=== PATIENT | female | born 1950 | race Caucasian/White ===

== ENCOUNTER 2019-11-20 15:28 | Inpatient (IN) | payer MEDICARE ==
[~2019-11-20] VITALS: Ht 160 cm; Wt 55.8 kg
--- NOTE | 2019-11-20 15:52 | NUR ---
patient was seen by MD. She is awake and alert. She is confused and is not awareof her situation. Observer/sitter at bedside.
--- NOTE | 2019-11-20 16:36 | NUR ---
report given to accepting nurse.
[2019-11-20 17:00] VITALS: BP 115/59
--- NOTE | 2019-11-20 17:00 | NUR ---
Admitted 69 year old female with dx of acute psychosis. In no acute distress. No SOB noted. Admission interventions completed. Safety measures implemented. Will continue to monitor and assess.
[2019-11-20] MEDS ORDERED: GUAIFENESIN/DEXTROMETHORPHAN 5 ML UDC PO PRN (17:15)
[2019-11-20] MEDS ORDERED: MAGNESIUM HYDROXIDE 30 ML LIQUID UDC PO PRN (17:15)
[2019-11-20 19:00] VITALS: BP 123/80
[2019-11-20] MEDS: ACETAMINOPHEN 325 MG TABLET PO PRN (20:41)
[2019-11-20] MEDS: LATANOPROST OPHT DROP 2.5 ML BOTTLE EACHEYE SCH (20:41)
[2019-11-20] MEDS ORDERED: BIMATOPROST 0.01% OPHT DROP 2.5 ML BOTTLE EACHEYE SCH (21:00)
[2019-11-20] MEDS: CEphaleXIN 500 MG CAPSULE PO SCH (21:29)
[2019-11-21] MEDS ORDERED: MAG HYDROX/AL HYDROX/SIMETH 30 ML LIQUID UDC PO PRN (00:45)
[2019-11-21] MEDS: CEphaleXIN 500 MG CAPSULE PO SCH ×3 (06:22→21:03)
[2019-11-21 06:31] LABS: BASOPHILS # (AUTO) 0.1 K/uL (0.0-8.0); BASOPHILS % (AUTO) 1.3 % (0.0-2.0); EOSINOPHILS # (AUTO) 0.2 K/uL (0.0-0.7); EOSINOPHILS % (AUTO) 2.9 % (0.0-7.0); HEMATOCRIT 37.9 % (31.2-41.9); HEMOGLOBIN 12.9 g/dL (10.9-14.3); LYMPHOCYTES # (AUTO) 2.7 K/uL (20.0-40.0); LYMPHOCYTES % (AUTO) 50.9 % (20.5-51.5); MEAN CORPUSCULAR HEMOGLOBIN 31.3 uug (24.7-32.8); MEAN CORPUSCULAR HGB CONC 34 g/dL (32.3-35.6); MEAN CORPUSCULAR VOLUME 92.1 fL (75.5-95.3); MONOCYTES # (AUTO) 0.5 K/uL (2.0-10.0); MONOCYTES % (AUTO) 9.3 % (0.0-11.0); NEUTROPHILS # (AUTO) 1.9 K/uL (1.8-8.9); NEUTROPHILS % (AUTO) 35.6 % (38.5-71.5); PLATELET COUNT (AUTO) 208 K/uL (179-408); RED BLOOD CELL COUNT(AUTO) 4.11 MIL/uL (3.63-4.92); WHITE BLOOD COUNT (AUTO) 5.4 K/uL (3.8-11.8)
[2019-11-21 06:52] LABS: BILIRUBIN,DIRECT 0.1 mg/dL (0.0-0.2); BILIRUBIN,TOTAL 0.3 mg/dL (0.2-1.0); CREATININE 0.7 mg/dL (0.6-1.3); MAGNESIUM 2.2 mg/dL (1.8-2.4); PHOSPHOROUS 3.9 mg/dL (2.5-4.9); POTASSIUM 3.8 mmol/L (3.5-5.1); TOTAL PROTEIN, SERUM 6.5 g/dL (6.4-8.2)
[2019-11-21 06:53] LABS: THYROID STIMULATING HORMONE 1.454 mIU/mL (0.358-3.740)
[2019-11-21 07:52] VITALS: BP 119/66
[2019-11-21] MEDS: AMLODIPINE 5 MG TABLET PO SCH (08:17)
--- NOTE | 2019-11-21 10:00 | NUR ---
Gps/Daily Sales Audit Clerk-Confused, disoriented, needed constant redirections, reorientations, very forgetful awol risk, kept saying she needs to go home to take care of her mother. Frequency in urination noted, denies any burning sensations, adequate fluid intake. Ambulated around the hallway . Gets anxious, and figity .Continue to monitor safety.
[2019-11-21 10:36] VITALS: BP 132/72
--- NOTE | 2019-11-21 11:06 | NUR ---
Received patient from overnight cashier, sitting on the edge of the bed and making frequent trips to the bathroom. Urinary urgency and frequency noted. Patient is very confused and needs constant reorientation. Ambulated patient around unit and medicated patient for anxiety. Monitoring for safety. No acute distress or behavior issues noted at this time. .
[2019-11-21] MEDS: ACETAMINOPHEN 325 MG TABLET PO PRN (11:15)
[2019-11-21] MEDS: LORAZEPAM 1 MG TABLET PO PRN ×2 (11:15→20:54)
--- NOTE | 2019-11-21 12:42 | NUR ---
Gps?pulp house supervisor- Restless, and remains anxious, patient carrying thrash can from the bathroom, discouraged patient from doing so, claimed she's giving the thrash to her sister . Encouraged patient to finished her lunch tray claimed not hungry, adequate fluid intake.
[2019-11-21 16:20] VITALS: BP 118/60
[2019-11-21] MEDS: DIVALPROEX 250 MG TABLET.DR PO SCH ×2 (16:49→20:25)
[2019-11-21] MEDS: risperiDONE 0.25 MG TABLET PO SCH (16:49)
--- NOTE | 2019-11-21 17:45 | NUR ---
Gps/Lvv- Refusing am shower , re offered this pm, agreed, assisted with her pm shower. Noted patient has bilateral hearing aid, removed and was put in the contraband locker, removed black back pack with pouches of make up stuff also placed in the contraband locker. Noted 2 eye glasses, kept 1 pair with patient and 1 kept in the locker. Refused to wear hosp. gown and pajama buttom, wants to keep her reg. clothes . Patient very forgetful, poor safety judgement, constant redirections provided. Patient was able to talked to her 3x, sister Janae x2, and Je,patient does not remember talking to them.
[2019-11-21 19:18] VITALS: BP 133/68
[2019-11-21] MEDS: LATANOPROST OPHT DROP 2.5 ML BOTTLE EACHEYE SCH (20:25)
[2019-11-21] MEDS: HYDROCODONE/APAP 5-325MG TABLET PO PRN (21:32)
[2019-11-22] MEDS: CEphaleXIN 500 MG CAPSULE PO SCH ×3 (06:01→21:14)
--- NOTE | 2019-11-22 07:03 | NUR ---
Received Pt to care ambulating with 1:1 sitter. Pt noted to be very restless and anxious, thinking her mother was going to pick her up and take her to school. Pt is A+Ox1 to her name only, she is delusional, disoriented and confused, requiring constant redirection and reorientation. Compliant with medications only after prompting and encouragement given. C/o 8/10 generalized pain, [place] 5/325 administered with good effect. Ativan administered for anxiety with minimal effect. Restoril subsequently administered with good effect, as Pt is now resting comfortably. VS stable, ADLs provided, safety emphasized. Slept 7 hours.
[2019-11-22 08:00] VITALS: BP 120/65
[2019-11-22] MEDS: DIVALPROEX 250 MG TABLET.DR PO SCH ×3 (08:03→21:15)
[2019-11-22] MEDS: risperiDONE 0.25 MG TABLET PO SCH ×2 (08:03→16:07)
[2019-11-22] MEDS: AMLODIPINE 5 MG TABLET PO SCH (08:03)
[2019-11-22 12:00] VITALS: BP 112/75
--- NOTE | 2019-11-22 13:52 | NUR ---
GPS: RECEIVED PATIENT AWAKE , SITTING HER CHAIR, WITH 1:1 SITTER FOR SAFETY, PATIENT CONFUSED BUT REDIRECTABLE, PATIENT COMPLIANT WITH MEDICATION, DENIES PAIN , SEEN AMBULATING WITH HER SITTER IN THE HALLWAY, PATIENT WAS GIVEN MAGAZINE AND CRAFTS TO REDIRECT HER ATTENTION, WILL CONTINUE MONITOR
[2019-11-22 15:01] VITALS: BP 120/62
[2019-11-22 16:00] VITALS: BP 110/60
[2019-11-22] MEDS: LORAZEPAM 1 MG TABLET PO PRN (19:22)
[2019-11-22 19:25] VITALS: BP 122/52
[2019-11-22] MEDS: HYDROCODONE/APAP 5-325MG TABLET PO PRN (19:25)
[2019-11-22] MEDS: LATANOPROST OPHT DROP 2.5 ML BOTTLE EACHEYE SCH (21:14)
[2019-11-23] MEDS: CEphaleXIN 500 MG CAPSULE PO SCH ×3 (06:18→22:58)
[2019-11-23 07:29] VITALS: BP 119/43
--- NOTE | 2019-11-23 07:32 | NUR ---
GPS: received patient awake on her bed, AOx1, patient responded to staff, patient verbalizes thats shes feeling well and had a good sleep, will continue monitor
[2019-11-23] MEDS: risperiDONE 0.25 MG TABLET PO SCH ×2 (08:25→16:05)
[2019-11-23] MEDS: DIVALPROEX 250 MG TABLET.DR PO SCH ×3 (08:25→20:23)
[2019-11-23] MEDS: AMLODIPINE 5 MG TABLET PO SCH (08:27)
[2019-11-23] MEDS: ACETAMINOPHEN 325 MG TABLET PO PRN (12:34)
--- NOTE | 2019-11-23 12:42 | NUR ---
Social Work Family Contact: metalworker contacted patient's Richie ([phone]) and gathered collateral. Per Richie, he would want patient back home upon discharge. metalworker discussed treatment plan and discharge plan.
--- NOTE | 2019-11-23 12:42 | NUR ---
Social Work Initial Discharge Plan: Patient currently resides at [address] [place] [address]; ([phone]). Patient lives with her Richie ([phone]). Per patient's , he would want patient to return home upon discharge. dimension mill worker will work with the patient and the MD regarding appropriate discharge planning. dimension mill worker will form a safe and proper discharge.
--- NOTE | 2019-11-23 14:34 | NUR ---
Social Work Individual Counseling: roll on worker met with patient for brief individual therapy. Patient demonstrate with delusional thought content. roll on worker increased awareness surrounding positive reinforcement. Patient was unable to have meaningful conversation with this teletypewriter installer. Patient was experiencing hallucination and stated that if this teletypewriter installer can see "Herb". This teletypewriter installer assured if patient is feeling safe. Patient stated that she is safe. Patient is confused and disorganized.
--- NOTE | 2019-11-23 14:46 | NUR ---
Social Work Firearms Report: Elevated Guard completed and submitted a [employer] firearms report for 5250 grave disability certification. A copy of report has been placed in patient chart
[2019-11-23] MEDS: LORAZEPAM 1 MG TABLET PO PRN (15:20)
[2019-11-23 20:00] VITALS: BP 122/77
[2019-11-23] MEDS: TEMAZEPAM 7.5 MG CAPSULE PO PRN (20:23)
[2019-11-23] MEDS: LATANOPROST OPHT DROP 2.5 ML BOTTLE EACHEYE SCH (21:52)
[2019-11-24] MEDS: CEphaleXIN 500 MG CAPSULE PO SCH ×3 (06:36→20:42)
[2019-11-24 07:30] VITALS: BP 146/69
[2019-11-24] MEDS: AMLODIPINE 5 MG TABLET PO SCH (08:10)
[2019-11-24] MEDS: risperiDONE 0.25 MG TABLET PO SCH ×2 (08:10→16:27)
[2019-11-24] MEDS: DIVALPROEX 250 MG TABLET.DR PO SCH ×3 (08:10→20:42)
--- NOTE | 2019-11-24 09:00 | NUR ---
Social Work PC Hearing Notification: bakery worker conveyor line contacted patient's Richie, ([phone]) and notified patients probable cause of hearing today.
--- NOTE | 2019-11-24 10:38 | NUR ---
Social Work Family Contact: tea plantation worker spoke with patient's Richie ([phone]) and educated patient on 8934. , stated that patient is "sedated" and would like to speak to the doctor. This typewriter ribbon winder stated that patient is not "sedated". This typewriter ribbon winder notified Dr. Cruz. This typewriter ribbon winder also spoke with patient's sister Je ([phone]) who stated that patient has re-current UTI, however; this typewriter ribbon winder checked with the nursing and they stated that patient does not have UTI.
[2019-11-24] MEDS: LORAZEPAM 1 MG TABLET PO PRN ×2 (11:02→17:03)
[2019-11-24 16:00] VITALS: BP 131/57
--- NOTE | 2019-11-24 18:58 | NUR ---
patient noted with anxious behaviour, no distress noted, redirected, meds given as ordered, effective, patient denied suicidal thoughts, continue to monitor
[2019-11-24] MEDS: LATANOPROST OPHT DROP 2.5 ML BOTTLE EACHEYE SCH (20:42)
[2019-11-24] MEDS: TEMAZEPAM 7.5 MG CAPSULE PO PRN (21:54)
[2019-11-24 22:00] VITALS: BP 138/69
--- NOTE | 2019-11-24 22:00 | NUR ---
received to care, up in domenico chair for safety, talking to self, appearing distracted by internal stimuli. ambulated and toileted. gait remains unsteady. compliant with medications, but remains restless, up in domenico chair. PRN restoril was given, for insomnia, at 2154. will continue to monitor closely.
--- NOTE | 2019-11-24 23:00 | NUR ---
assisted to bed. appears to be asleep. no distress noted. will continue to monitor closely.
--- NOTE | 2019-11-25 06:00 | NUR ---
slept 7.5 hours, total. is now awake. assisted with am care, and shower. no distress noted.
[2019-11-25] MEDS: CEphaleXIN 500 MG CAPSULE PO SCH ×3 (06:43→21:12)
[2019-11-25 08:00] VITALS: BP 120/60
[2019-11-25] MEDS: risperiDONE 0.5 MG TABLET PO SCH ×2 (08:28→21:13)
[2019-11-25] MEDS: AMLODIPINE 5 MG TABLET PO SCH (08:28)
[2019-11-25] MEDS: DIVALPROEX 250 MG TABLET.DR PO SCH ×3 (08:28→21:00)
[2019-11-25] MEDS: RIVASTIGMINE TARTRATE 1.5 MG CAPSULE PO SCH ×2 (08:28→21:12)
[2019-11-25 16:00] VITALS: BP 117/65
[2019-11-25] MEDS: LORAZEPAM 1 MG TABLET PO PRN (20:13)
[2019-11-25] MEDS: ACETAMINOPHEN 325 MG TABLET PO PRN (20:13)
[2019-11-25] MEDS: LATANOPROST OPHT DROP 2.5 ML BOTTLE EACHEYE SCH (20:14)
[2019-11-25 20:44] VITALS: BP 102/54
[2019-11-25] MEDS ORDERED: VALPROIC ACID 250 MG/5 ML LIQUID UDC PO SCH (21:00)
--- NOTE | 2019-11-25 22:00 | NUR ---
received to care, up in domenico chair for safety, talking to self, appearing distracted by internal stimuli. ambulated and toileted. gait remains unsteady. compliant with medications. PRN ativan was given, for anxiety, at 2012. as of 2199, she remains restless. will continue to monitor closely.
[2019-11-25] MEDS: TEMAZEPAM 7.5 MG CAPSULE PO PRN (22:20)
--- NOTE | 2019-11-25 22:20 | NUR ---
PRN restoril, given for insomnia.
--- NOTE | 2019-11-25 23:30 | NUR ---
appears to be asleep. no distress noted.
--- NOTE | 2019-11-26 00:30 | NUR ---
is now awake, and restless. assisted to [facility] for safety.
--- NOTE | 2019-11-26 03:30 | NUR ---
assisted back to bed. is now asleep.
--- NOTE | 2019-11-26 05:00 | NUR ---
slept 2.45 hours, total. continues to sleep. no distress noted.
[2019-11-26] MEDS: CEphaleXIN 500 MG CAPSULE PO SCH ×2 (06:20→12:51)
[2019-11-26 07:30] VITALS: BP 137/99
[2019-11-26] MEDS: RIVASTIGMINE TARTRATE 1.5 MG CAPSULE PO SCH ×2 (08:26→21:00)
[2019-11-26] MEDS: VALPROIC ACID 250 MG/5 ML LIQUID UDC PO SCH ×3 (08:26→20:59)
[2019-11-26] MEDS: AMLODIPINE 5 MG TABLET PO SCH (08:26)
[2019-11-26] MEDS: risperiDONE 0.5 MG TABLET PO SCH ×2 (08:26→21:00)
--- NOTE | 2019-11-26 11:48 | NUR ---
Received patient this am trying to get out of the bed. Assistance given to the patient to the bathroom , then set up for breakfast. Patient is very forgetful and confused, needing constant reorientation and redirection. Some banging on the table noted and anxious, restless behavior. Medicated per MD order and will continue to monitor patient for safety or and behavior escalation. No distress noted at this time. Patient has been medication compliant so far.
[2019-11-26] MEDS: LORAZEPAM 1 MG TABLET PO PRN ×2 (12:01→21:31)
[2019-11-26 16:11] VITALS: BP 145/74
[2019-11-26] MEDS: HYDROCODONE/APAP 5-325MG TABLET PO PRN (16:54)
[2019-11-26] MEDS ORDERED: TEMAZEPAM 7.5 MG CAPSULE PO PRN (17:30)
[2019-11-26] MEDS ORDERED: ACETAMINOPHEN 325 MG TABLET PO PRN (17:30)
[2019-11-26] MEDS ORDERED: BLOOD SUGAR DIAGNOSTIC 1 EACH STRIP VI ONE (17:30)
[2019-11-26] MEDS ORDERED: LORAZEPAM 1 MG TABLET PO PRN (17:30)
[2019-11-26] MEDS ORDERED: MAG HYDROX/AL HYDROX/SIMETH 30 ML LIQUID UDC PO PRN (17:30)
[2019-11-26] MEDS ORDERED: MAGNESIUM HYDROXIDE 30 ML LIQUID UDC PO PRN (17:30)
--- NOTE | 2019-11-26 19:45 | NUR ---
RECEIVED PT AWAKE, ALERT AND ORIENTEDX1. PT CONFUSED AND FORGETFUL. PT IN NO ACUTE DISTRESS. PLEASANT WHEN APPROACHED. NO SIGNS OF AGITATION. WILL CONTINUE TO MONITOR.
[2019-11-26] MEDS: LATANOPROST OPHT DROP 2.5 ML BOTTLE EACHEYE SCH (20:58)
[2019-11-26 21:19] VITALS: BP 105/97
--- NOTE | 2019-11-27 06:35 | NUR ---
PT SLEPT 7.30 H. PT COOPERATIVE WITH CARE. PRESCRIBED MEDICATION GIVEN AND PT TOLERATED IT WELL. AT 2131H PT GIVEN ATIVAN BECAUSE OF RESTLESSNESS , BANGING THE TABLE, KNOCKING THE DOOR. PT TOLERATED IT WELL. SAFETY AND COMFORT PROVIDED. WILL ENDORSE TO INCOMING NURSE FOR CONTINUITY OF CARE.
[2019-11-27 07:54] VITALS: BP 105/58
[2019-11-27] MEDS: RIVASTIGMINE TARTRATE 1.5 MG CAPSULE PO SCH ×2 (08:34→20:29)
[2019-11-27] MEDS: VALPROIC ACID 250 MG/5 ML LIQUID UDC PO SCH ×3 (08:34→20:29)
[2019-11-27] MEDS: risperiDONE 0.5 MG TABLET PO SCH ×2 (08:35→20:29)
[2019-11-27] MEDS: AMLODIPINE 5 MG TABLET PO SCH (08:35)
--- NOTE | 2019-11-27 11:11 | NUR ---
Patient up early this am trying to get out of bed. Assisted patient tho the bathroom. Patient up to chair for breakfast. Showered patient and allowed patient to ambulate in lo. Gait noted more steady today. Patient remains totally confused and disoriented. Constant redirection and reorientation given. Monitoring patient for episodes of anxiety and hip pain. Continuing to provide a safe environment for patient. No acute distress noted at this time.
--- NOTE | 2019-11-27 13:37 | NUR ---
Social Work Individual Counseling: duralumin metalworker met with patient for brief individual therapy. Patient demonstrate with delusional thought content. duralumin metalworker increased awareness surrounding positive reinforcement. Patient was unable to have meaningful conversation with this story writer. Patient is disorganized and disoriented. She is unaware of where she is at. This story writer actively listened to patient.
[2019-11-27] MEDS: LORAZEPAM 1 MG TABLET PO PRN ×2 (16:46→22:46)
[2019-11-27 16:57] VITALS: BP 121/67
[2019-11-27 20:16] VITALS: BP 118/56
[2019-11-27] MEDS: LATANOPROST OPHT DROP 2.5 ML BOTTLE EACHEYE SCH (20:30)
[2019-11-27] MEDS: TEMAZEPAM 7.5 MG CAPSULE PO PRN (21:27)
--- NOTE | 2019-11-28 06:20 | NUR ---
Patient slept about a total of 4.0 hours last night.
[2019-11-28 07:30] VITALS: BP 127/61
[2019-11-28] MEDS: RIVASTIGMINE TARTRATE 1.5 MG CAPSULE PO SCH ×2 (08:28→20:25)
[2019-11-28] MEDS: risperiDONE 0.5 MG TABLET PO SCH ×2 (08:28→20:25)
[2019-11-28] MEDS: VALPROIC ACID 250 MG/5 ML LIQUID UDC PO SCH ×3 (08:29→20:25)
[2019-11-28] MEDS: AMLODIPINE 5 MG TABLET PO SCH (08:29)
[2019-11-28] MEDS: LORAZEPAM 1 MG TABLET PO PRN ×2 (11:39→20:25)
[2019-11-28 16:47] VITALS: BP 122/58
[2019-11-28] MEDS: LATANOPROST OPHT DROP 2.5 ML BOTTLE EACHEYE SCH (20:24)
[2019-11-28] MEDS: ACETAMINOPHEN 325 MG TABLET PO PRN (20:25)
[2019-11-28 20:31] VITALS: BP 135/59
[2019-11-28] MEDS: CLONAZEPAM 0.5 MG TABLET PO SCH (22:56)
[2019-11-29] MEDS: TEMAZEPAM 7.5 MG CAPSULE PO PRN (00:05)
--- NOTE | 2019-11-29 06:19 | NUR ---
Patient slept about a total of 5.30 hours last night.
[2019-11-29 07:30] VITALS: BP 116/47
[2019-11-29] MEDS: CLONAZEPAM 0.5 MG TABLET PO SCH ×2 (09:00→20:51)
[2019-11-29] MEDS: RIVASTIGMINE TARTRATE 1.5 MG CAPSULE PO SCH ×2 (09:02→20:51)
[2019-11-29] MEDS: risperiDONE 0.5 MG TABLET PO SCH ×2 (09:02→20:51)
[2019-11-29] MEDS: AMLODIPINE 5 MG TABLET PO SCH (09:03)
[2019-11-29] MEDS: VALPROIC ACID 250 MG/5 ML LIQUID UDC PO SCH ×3 (09:04→20:51)
[2019-11-29 15:48] VITALS: BP 106/61
[2019-11-29] MEDS: LATANOPROST OPHT DROP 2.5 ML BOTTLE EACHEYE SCH (21:00)
[2019-11-29 22:27] VITALS: BP 103/58
--- NOTE | 2019-11-29 22:30 | NUR ---
received to care, up in domenico chair for safety, appearing anxious, and distracted by internal stimuli. ambulated and toileted. gait remains unsteady. compliant with medications. assisted with fluids and snacks. as of 2229, she appears asleep. no distress noted. will continue to monitor closely.
--- NOTE | 2019-11-30 06:14 | NUR ---
slept 7 hours, total. is now awake. assisted with am care. up in domenico chair, for safety. no distress noted.
[2019-11-30 07:30] VITALS: BP 118/60
--- NOTE | 2019-11-30 08:00 | NUR ---
Received patient awake and alert , kept clean and dry at all times. safety and comfort provided. will continue to monitor.
[2019-11-30] MEDS: RIVASTIGMINE TARTRATE 1.5 MG CAPSULE PO SCH ×2 (08:26→20:38)
[2019-11-30] MEDS: VALPROIC ACID 250 MG/5 ML LIQUID UDC PO SCH ×3 (08:26→20:03)
[2019-11-30] MEDS: CLONAZEPAM 0.5 MG TABLET PO SCH ×2 (08:26→20:38)
[2019-11-30] MEDS: risperiDONE 0.5 MG TABLET PO SCH ×2 (08:27→20:38)
[2019-11-30] MEDS: AMLODIPINE 5 MG TABLET PO SCH (08:27)
[2019-11-30 15:06] VITALS: BP 115/61
[2019-11-30] MEDS: LATANOPROST OPHT DROP 2.5 ML BOTTLE EACHEYE SCH (20:40)
[2019-11-30 20:44] VITALS: BP 118/64
--- NOTE | 2019-11-30 22:30 | NUR ---
received to care, up in domenico chair, for safety, talking to self, unsteady gait, anxious and suspicious. initially refused her bedtime medications, but eventually took them, with some encouragement. she was assisted to bed at 2144. as of 2229, she remains awake, talking to self. will continue tro monitor closely.
[2019-11-30] MEDS: TEMAZEPAM 7.5 MG CAPSULE PO PRN (23:14)
--- NOTE | 2019-11-30 23:14 | NUR ---
pt irecasimiroins awake. attempting to get out of bed. she was toileted and placed in domenico chair, for safety. PRN restoril, given for insomnia.
[2019-12-01] MEDS: LORAZEPAM 1 MG TABLET PO PRN (01:36)
--- NOTE | 2019-12-01 01:36 | NUR ---
remains awake, and restless. PRN ativan, given for anxiety. remains up in domenico chair, for safety.
--- NOTE | 2019-12-01 06:00 | NUR ---
slept 3.0 hours, total. continues to sleep. no distress noted.
[2019-12-01 07:30] VITALS: BP 91/50
[2019-12-01] MEDS: AMLODIPINE 5 MG TABLET PO SCH (09:00)
[2019-12-01] MEDS: risperiDONE 0.5 MG TABLET PO SCH ×2 (09:12→20:19)
[2019-12-01] MEDS: VALPROIC ACID 250 MG/5 ML LIQUID UDC PO SCH ×3 (09:12→20:19)
[2019-12-01] MEDS: CLONAZEPAM 0.5 MG TABLET PO SCH ×2 (09:14→20:19)
[2019-12-01] MEDS: RIVASTIGMINE TARTRATE 1.5 MG CAPSULE PO SCH ×2 (09:17→20:19)
--- NOTE | 2019-12-01 12:52 | NUR ---
Social Work Family Contact: This rewriter spoke with patient's sister Je ([phone]) and stated that they have hired a caregiver that will provide care for the patient for 8-10 hours a day. This rewriter will arrange home health services for patient upon discharge as well.
--- NOTE | 2019-12-01 15:58 | NUR ---
Patient remove her clothes more often. verbalize different story at one time. Patient seen and examined by MD Young, ordered increase Risperidone 0.5mg to 0.75mg. Patient consumed meals fairly. will continue monitor
[2019-12-01 16:08] VITALS: BP 116/66
[2019-12-01 19:53] VITALS: BP 126/63
[2019-12-01] MEDS: LATANOPROST OPHT DROP 2.5 ML BOTTLE EACHEYE SCH (20:39)
--- NOTE | 2019-12-01 22:00 | NUR ---
received to care, up in domenico chair, for safety. pleasant upon approach. compliant with medications and staff direction. as of 2199, she appears to be asleep. no distress noted. will continue to monitor closely.
--- NOTE | 2019-12-02 06:00 | NUR ---
slept 7.25 hours. continues to sleep. no distress noted.
[2019-12-02] MEDS: ACETAMINOPHEN 325 MG TABLET PO PRN (07:00)
[2019-12-02 07:30] VITALS: BP 106/55
[2019-12-02] MEDS ORDERED: AMLODIPINE 2.5 MG TABLET PO ONE (09:00)
--- NOTE | 2019-12-02 09:41 | NUR ---
Social Work Individual Therapy: alley worker met with patient for brief individual therapy. Patient demonstrate with delusional thought content. Patient was unable to conversate with this speech writer. Patient is confused and disoriented. Patient keeps going off topic and is not focused. This speech writer actively listened and provided emotional support.
[2019-12-02] MEDS: VALPROIC ACID 250 MG/5 ML LIQUID UDC PO SCH ×3 (10:18→21:04)
[2019-12-02] MEDS: CLONAZEPAM 0.5 MG TABLET PO SCH ×2 (10:19→21:03)
[2019-12-02] MEDS: RIVASTIGMINE TARTRATE 1.5 MG CAPSULE PO SCH ×2 (10:19→21:01)
[2019-12-02] MEDS: risperiDONE 0.5 MG TABLET PO SCH ×2 (10:25→21:02)
[2019-12-02] MEDS: LORAZEPAM 1 MG TABLET PO PRN (13:38)
[2019-12-02 16:00] VITALS: BP 104/62
[2019-12-02 20:43] VITALS: BP_SYST 121; BP_DIAS 49; BP_DIAS 59
[2019-12-02] MEDS: LATANOPROST OPHT DROP 2.5 ML BOTTLE EACHEYE SCH (21:06)
[2019-12-03 07:30] VITALS: BP 112/53
--- NOTE | 2019-12-03 09:25 | NUR ---
Social Work Family Contact: powder worker tnt contacted patient's Richie ([phone]) and sister Je ([phone]) and stated that patient will be discharged tomorrow 12/04/2019. Patient's Richie will pick patient up.
--- NOTE | 2019-12-03 09:26 | NUR ---
Social Work Coordination of Care: farmworker grain contacted patients (primary doctor) Dr. Muhammad and scheduled an appointment on December 07 at 8:30AM via telephone meeting. This ad copy writer also contacted and scheduled an appointment on December 08 at 3PM. This ad copy writer contacted [facility] for home health services patient was referred for home health services by [facility] (ph: [phone]; fax: [phone]) for medication management, physical therapy, and nursing follow ups.
[2019-12-03] MEDS: CLONAZEPAM 0.5 MG TABLET PO SCH ×2 (09:58→20:12)
[2019-12-03] MEDS: VALPROIC ACID 250 MG/5 ML LIQUID UDC PO SCH ×3 (09:59→20:12)
[2019-12-03] MEDS: risperiDONE 0.5 MG TABLET PO SCH ×2 (09:59→20:13)
[2019-12-03] MEDS: RIVASTIGMINE TARTRATE 1.5 MG CAPSULE PO SCH ×2 (09:59→20:12)
[2019-12-03 15:13] VITALS: BP 96/55
[2019-12-03] MEDS: LATANOPROST OPHT DROP 2.5 ML BOTTLE EACHEYE SCH (20:12)
[2019-12-03 20:16] VITALS: BP 116/54
[2019-12-03] MEDS: TEMAZEPAM 7.5 MG CAPSULE PO PRN (23:25)
--- NOTE | 2019-12-04 06:27 | NUR ---
GPS: Pt.slept 6 hrs.last night. Remains confused,disoriented. Allows care from staff. No increased agitation noted. Fall precautions observed.
[2019-12-04 07:30] VITALS: BP 118/61
--- NOTE | 2019-12-04 08:29 | NUR ---
Social Work Discharge Note: Patient will be discharged back home [address] [place] [address]; ([phone]). Patients Richie ([phone]) will pickler helper patient at 1PM. Patients Richie ([phone]) is aware and agreeable with the discharge plan. Patient is aware and agreeable with discharge plans. Upon discharge, patient appear to be calm, cooperative and happy to be going home. Patient denies suicidal and homicidal ideation. Patient will follow up with Dr. Muhammad (oral and maxillofacial surgeon) at [address] [place] [address]; ([phone]) on December 07 at 8:30AM via phone meeting and will follow up with Dr. Cullen (psychiatrist) on December 08 at 3 PM at [address] [address]; ([phone]). Per patients sister Je ([phone]), stated that patient will have a caregiver who will help patients debra Queen. Patient was referred for home health services by [facility] (ph: [phone]; fax: [phone]) for medication management, physical therapy, and nursing follow ups. A nurse will be sent to evaluate patient upon her discharge. Patient presents with euthymic mood and congruent affect.
[2019-12-04] MEDS: risperiDONE 0.5 MG TABLET PO SCH (09:16)
[2019-12-04] MEDS: VALPROIC ACID 250 MG/5 ML LIQUID UDC PO SCH ×2 (09:16→12:14)
[2019-12-04] MEDS: CLONAZEPAM 0.5 MG TABLET PO SCH (09:16)
[2019-12-04] MEDS: RIVASTIGMINE TARTRATE 1.5 MG CAPSULE PO SCH (09:16)
--- NOTE | 2019-12-04 13:50 | NUR ---
Pt is being discharged home with homehealth. Pt's Christopher Queen is picking her up. Pt is confused as per baseline. Pt is calm and cooperative. VS are stable. No distress. Discharge instructions were given to the . All belongings returned.
== END 2019-12-04 13:52 | disposition home health service (06) | DRG 885 ==
LOC: ER 15:28 → GPSOV3 16:25 → GPS 11-23 10:08
PROVIDERS: ADMIT Psychiatry & Neurology Psychiatry; ATTEND Nurse Practitioner Acute Care
DX: F29 Unspecified psychosis not due to a substance or known physiological condition (principal); F02.81 Dementia in other diseases classified elsewhere, unspecified severity, with behavioral disturbance; N39.0 Urinary tract infection, site not specified; G30.9 Alzheimer's disease, unspecified; I10 Essential (primary) hypertension; M19.90 Unspecified osteoarthritis, unspecified site; Z73.6 Limitation of activities due to disability; J40 Bronchitis, not specified as acute or chronic; R73.9 Hyperglycemia, unspecified
CPT/HCPCS: 36415; 71045; 80164; 83735; 84100; 84443; 85025; 93005; J3490

== ENCOUNTER 2019-12-09 14:59 | Inpatient (IN) | payer MEDICARE ==
[~2019-12-09] VITALS: Ht 165.1 cm; Wt 54.0 kg
[~2019-12-09 14:59] MED LIST: AMLO5TAB9 PO; BIMA2.5D5 EACHEYE; BRIM5DRO EACHEYE; CYAN-10 INJ
--- NOTE | 2019-12-09 15:17 | NUR ---
PT BROUGHT IN BY RESCUE FR HOME ON [address] HOLD PT IS AOX2 (NAME AND PLACE) PT IS DISORIENTED AND REORIENTED PT KEEPS TRYING TO GET OUT OF THE GURNEY BUT REDIRECTABLE
--- NOTE | 2019-12-09 15:31 | NUR ---
PT MEDICALLY CLEARED
--- NOTE | 2019-12-09 15:33 | NUR ---
HAND OFF AND SBAR GIVEN TO LOUIS TO ADMIT TO [facility] 140A DX: MEDICAL CLEARANCE PT IS GD PT ON [address] Addendum: 12/09/19 at 1544 by PURNIMA HAND OFF AND SBAR GIVEN TO CRISTÓBAL MYERS TO ADMIT TO [facility] 140A DX: MEDICAL CLEARANCE PT IS GD PT ON [address]
--- NOTE | 2019-12-09 15:54 | NUR ---
TRANSPORTED TO FLOOR VIA [facility]
[2019-12-09] MEDS ORDERED: ESCI10TA PO (15:58)
[2019-12-09] MEDS ORDERED: RISP0.5T20 PO (15:58)
[2019-12-09] MEDS ORDERED: RIVA1.5C13 PO (15:58)
[2019-12-09] MEDS ORDERED: DIVA250T4 PO (15:58)
[2019-12-09 16:00] VITALS: BP 115/62
[2019-12-09] MEDS ORDERED: BLOOD SUGAR DIAGNOSTIC 1 EACH STRIP VI ONE (16:30)
[2019-12-09] MEDS ORDERED: MAGNESIUM HYDROXIDE 30 ML LIQUID UDC PO PRN (16:30)
[2019-12-09] MEDS ORDERED: MAG HYDROX/AL HYDROX/SIMETH 30 ML LIQUID UDC PO PRN (16:30)
[2019-12-09] MEDS: LORAZEPAM 1 MG TABLET PO PRN (19:46)
[2019-12-09 20:35] VITALS: BP 162/60
[2019-12-09] MEDS ORDERED: BIMATOPROST 0.01% OPHT DROP 2.5 ML BOTTLE EACHEYE SCH (21:00)
[2019-12-09] MEDS: TEMAZEPAM 7.5 MG CAPSULE PO PRN (21:10)
[2019-12-09] MEDS: LATANOPROST OPHT DROP 2.5 ML BOTTLE EACHEYE SCH (21:15)
--- NOTE | 2019-12-09 22:00 | NUR ---
received to care, up in domenico chair, talking to self. report given by morning shift, who admitted this pt from home, at approximately 1600. she was discharged home last week, from out unit, but she remained unmanageable, at home. PRN ativan was given at 1945, for increasing restlessness. this was ineffective. PRN restoril was given at 2109 for insomnia, but, as of 2199, she remains awake, but appears calmer. she was assisted to bed, but immediately tried to climb out, so she was assited back to [facility], for safety. she continues to talk to self. no distress noted. will continue to monitor closely.
--- NOTE | 2019-12-10 06:00 | NUR ---
slept 3.5 hours, total. remains awake. assisted with AM care, and toileting. remains calm, talking to self. no distress noted.
[2019-12-10 07:30] VITALS: BP 112/50
[2019-12-10 07:50] LABS: BILIRUBIN,TOTAL 0.6 mg/dL (0.2-1.0); CREATININE 0.9 mg/dL (0.6-1.3); POTASSIUM 3.8 mmol/L (3.5-5.1); TOTAL PROTEIN, SERUM 7.6 g/dL (6.4-8.2)
[2019-12-10] MEDS: AMLODIPINE 5 MG TABLET PO SCH (08:43)
[2019-12-10 10:20] LABS: BASOPHILS # (AUTO) 0.1 K/uL (0.0-8.0); BASOPHILS % (AUTO) 1.2 % (0.0-2.0); EOSINOPHILS # (AUTO) 0.2 K/uL (0.0-0.7); EOSINOPHILS % (AUTO) 2.2 % (0.0-7.0); HEMATOCRIT 37.8 % (31.2-41.9); HEMOGLOBIN 13.3 g/dL (10.9-14.3); LYMPHOCYTES # (AUTO) 1.8 K/uL (20.0-40.0); LYMPHOCYTES % (AUTO) 23.4 % (20.5-51.5); MEAN CORPUSCULAR HGB CONC 35 g/dL (32.3-35.6); MONOCYTES # (AUTO) 0.7 K/uL (2.0-10.0); MONOCYTES % (AUTO) 9.3 % (0.0-11.0); NEUTROPHILS % (AUTO) 63.9 % (38.5-71.5); PLATELET COUNT (AUTO) 326 K/uL (179-408); RED BLOOD CELL COUNT(AUTO) 4.16 MIL/uL (3.63-4.92); WHITE BLOOD COUNT (AUTO) 7.8 K/uL (3.8-11.8)
[2019-12-10 10:38] LABS: THYROID STIMULATING HORMONE 2.48 mIU/mL (0.358-3.740)
[2019-12-10 10:51] LABS: BILIRUBIN,TOTAL 0.6 mg/dL (0.2-1.0); CREATININE 0.8 mg/dL (0.6-1.3); POTASSIUM 3.7 mmol/L (3.5-5.1); TOTAL PROTEIN, SERUM 6.9 g/dL (6.4-8.2)
--- NOTE | 2019-12-10 11:00 | NUR ---
Social Work Initial Discharge Note: Patient currently resides at [address] [place] [address]; ([phone]). This fha underwriter contacted patient's Richie ([phone]) but was unable to reach at the moment. Patient currently lives with her maryluhand Richie ([phone]). sand worker will work with the patient and the MD regarding appropriate discharge planning. sand worker will form a safe and proper discharge.
--- NOTE | 2019-12-10 11:36 | NUR ---
Social Work Family Contact: food prep worker contacted patient's sister Je ([phone]) who stated that she is unsure to if they want patient to a SNF or a Board and Care. food prep worker contacted patient's Abhi ([phone]) who stated that he is unable to take care of her at home and is possibly deciding if patient will need a SNF or Board and Care. Per Richie, stated that he will discuss this with the family and make a decision. This comic book writer will follow up.
--- NOTE | 2019-12-10 14:26 | NUR ---
Received patient this am wandering in hallway, lost. Going in and out of other patients rooms. Patient is totally confused, needing constant redirection and reorientation. Demeanor is pleasant and patient has been compliant with medications. Monitoring closely for safety and any escalation in behavior or distress. None noted at this time.
[2019-12-10 16:00] VITALS: BP 108/50
--- NOTE | 2019-12-10 16:21 | NUR ---
Social Work Individual Therapy Note: sill worker met with patient for brief counseling to address patients delusional thought content. Patient is disorganized and disoriented. Patient was using profanity while this medical underwriter was providing brief counseling. Patient stated that "everyone is just trying to get to her" and stated "even her is trying to get to her". This medical underwriter actively listened. Patient is unable to have a meaningful conversation with this medical underwriter.
[2019-12-10 20:26] VITALS: BP 101/53
[2019-12-10] MEDS: LORAZEPAM 1 MG TABLET PO PRN (20:35)
[2019-12-10] MEDS: ACETAMINOPHEN 325 MG TABLET PO PRN (20:35)
[2019-12-10] MEDS: LATANOPROST OPHT DROP 2.5 ML BOTTLE EACHEYE SCH (20:36)
[2019-12-10] MEDS: RIVASTIGMINE TARTRATE 1.5 MG CAPSULE PO SCH (23:02)
[2019-12-10] MEDS: MIRTAZAPINE 15 MG TABLET PO SCH (23:02)
[2019-12-10 23:21] LABS: *BILIRUBIN,URIN NEGATIVE (NEGATIVE); *BLOOD, URINE TRACE (NEGATIVE); *CLARITY,URINE CLEAR (CLEAR); *COLOR,URINE YELLOW (YELLOW); *KETONES,URINE TRACE (NEGATIVE); LEUKOCYTE ESTERASE ,URINE 2+ (NEGATIVE); NITRITE, URINE NEGATIVE (NEGATIVE); UGLUCOSE NEGATIVE (NEGATIVE)
[2019-12-10 23:26] LABS: BACTERIA,URINE FEW /HPF (NONE SEEN); SQUAMOUS EPITHELIAL CELL,UR MODERATE /HPF (NONE SEEN); WBC,URINE 20-50 /HPF (0-3)
--- NOTE | 2019-12-10 23:30 | NUR ---
received to care, wandering about unit, intrusive with peers and staff, requiring frequent redirection. PRN ativan was given for anxiety, at 2034, but it was ineffective, she continues to be intrusive, and gait was slightly unsteady, so she was placed in the domenico chair, for safety. was seen by Dr Cruz, and started on remeron, and exelon. assisted to bed at 2344. as of 14, she remains intermittently awake, in bed. no distress noted. will continue to monitor closely.
[2019-12-11] MEDS: TEMAZEPAM 7.5 MG CAPSULE PO PRN ×2 (00:29→21:38)
--- NOTE | 2019-12-11 00:29 | NUR ---
PRN restoril, given for insomnia.
--- NOTE | 2019-12-11 06:00 | NUR ---
slept 5.5 hours, total. assisted with am care, and shower. no distress noted.
[2019-12-11 07:30] VITALS: BP 120/99
[2019-12-11] MEDS: risperiDONE 0.5 MG TABLET PO SCH ×2 (08:42→20:17)
[2019-12-11] MEDS: RIVASTIGMINE TARTRATE 1.5 MG CAPSULE PO SCH ×2 (08:42→20:17)
[2019-12-11] MEDS: AMLODIPINE 5 MG TABLET PO SCH (08:48)
--- NOTE | 2019-12-11 09:42 | NUR ---
Social Work Firearms Report: Industrial Accountant completed and submitted a [employer] firearms report for 5250 grave disability certification. A copy of report has been placed in patient chart.
--- NOTE | 2019-12-11 10:51 | NUR ---
Social Work Family Contact: venetian blind worker spoke with patient's Richie ([phone]) who stated that he is still unsure to if he wants patient back home or to a SNF. This writer producer sent patient lists of SNFs and per Richei he stated that he will make a decision by Saturday12/14/19. This writer producer will follow-up with patient's .
[2019-12-11] MEDS: CEphaleXIN 500 MG CAPSULE PO SCH ×2 (13:09→16:35)
--- NOTE | 2019-12-11 14:18 | NUR ---
Received patient this am in domenico chair. Assisted patient with breakfast and am medications. Patient remains confused and needs constant reorientation to the environment. Gait steady, patient ambulates in the lo but goes room to room and is often lost. Some visual hallucination noted. Patient started on antibiotics for UTI. No acute distress noted. Continuing to monitor for safety.
[2019-12-11 15:18] VITALS: BP 90/52
--- NOTE | 2019-12-11 15:28 | NUR ---
Social Work Individual Therapy Note: cinder crew worker met with patient for brief counseling to address patients delusional thought content. Patient is disorganized and disoriented. Patient is unable to have proper eye contact and is unable to have meaningful conversation.
[2019-12-11] MEDS: LORAZEPAM 1 MG TABLET PO PRN (17:30)
[2019-12-11 20:10] VITALS: BP 101/52
[2019-12-11] MEDS: MIRTAZAPINE 15 MG TABLET PO SCH (20:17)
[2019-12-11] MEDS: LATANOPROST OPHT DROP 2.5 ML BOTTLE EACHEYE SCH (20:21)
[2019-12-11] MEDS: ACETAMINOPHEN 325 MG TABLET PO PRN (21:37)
--- NOTE | 2019-12-11 22:30 | NUR ---
received to care, wandering about unit, intrusive with peers and staff, requiring frequent redirection. she continued to be intrusive, and gait was slightly unsteady, so she was placed in the domenico chair, for safety. PRN restoril was given at 2137, for insomnia. as of 2229, she remains awake, in domenico chair. remains restless. will continue to monitor closely.
--- NOTE | 2019-12-12 06:00 | NUR ---
slept 5.5 hours, total. continues to sleep. no distress noted.
[2019-12-12 07:30] VITALS: BP 102/52
[2019-12-12] MEDS: AMLODIPINE 5 MG TABLET PO SCH (09:00)
[2019-12-12] MEDS: risperiDONE 0.5 MG TABLET PO SCH ×2 (09:22→20:15)
[2019-12-12] MEDS: RIVASTIGMINE TARTRATE 1.5 MG CAPSULE PO SCH ×2 (09:22→20:15)
[2019-12-12] MEDS: CEphaleXIN 500 MG CAPSULE PO SCH ×2 (09:22→16:18)
[2019-12-12] MEDS: LORAZEPAM 1 MG TABLET PO PRN ×2 (11:37→20:15)
--- NOTE | 2019-12-12 12:00 | NUR ---
Patient noted very restless. Ativan 1mg PO PRN administered and tolerated well.
[2019-12-12 15:47] VITALS: BP 93/42
[2019-12-12] MEDS: ACETAMINOPHEN 325 MG TABLET PO PRN (16:18)
[2019-12-12] MEDS: MIRTAZAPINE 15 MG TABLET PO SCH (20:15)
[2019-12-12] MEDS: LATANOPROST OPHT DROP 2.5 ML BOTTLE EACHEYE SCH (20:19)
[2019-12-12 20:30] VITALS: BP 117/60
[2019-12-12] MEDS: TEMAZEPAM 7.5 MG CAPSULE PO PRN (21:56)
--- NOTE | 2019-12-13 05:56 | NUR ---
Received Pt in the hallway attempting to get out of the domenico chair unsafely. Pt was assisted from the chair and taken to the bathroom. Pt remained restless and anxious, wandering into other Pt's rooms despite redirection provided. Pt placed back into domenico chair for safety. Pt is confused, disoriented, and forgetful. Compliant with medications with prompting and encouragement. Pt has episodes of delusional behavior, believing her is here or thinking she is at home. Ativan 1 mg administered with minimal effect. Restoril 7.5mg administered with good effect, pt slept 5 hours. Shower given this morning. Denied pain, VS stable.
[2019-12-13 07:30] VITALS: BP 120/49
[2019-12-13] MEDS: RIVASTIGMINE TARTRATE 1.5 MG CAPSULE PO SCH ×2 (08:24→20:16)
[2019-12-13] MEDS: AMLODIPINE 5 MG TABLET PO SCH (08:25)
[2019-12-13] MEDS: risperiDONE 0.5 MG TABLET PO SCH ×2 (08:25→20:17)
[2019-12-13] MEDS: CEphaleXIN 500 MG CAPSULE PO SCH ×2 (08:25→17:11)
--- NOTE | 2019-12-13 14:10 | NUR ---
Received patient this AM trying to get out of domenico chair. This patient is totally confused and having visual hallucinations. Reorientation and redirection provided during the whole shift. Patient is ambulatory but wonders around into other patients room. Medication compliant with encouragement and needs assistance with meals. Patient with increased anxiety as the day progresses. Medication given as ordered. Continuing to monitor closely for safety and behavior escalation. Unable to have any meaningful conversation with patient d/t their confusion.
[2019-12-13] MEDS: LORAZEPAM 1 MG TABLET PO PRN (15:36)
[2019-12-13 16:14] VITALS: BP 105/59
[2019-12-13 20:06] VITALS: BP 107/82
[2019-12-13] MEDS: LATANOPROST OPHT DROP 2.5 ML BOTTLE EACHEYE SCH (20:16)
[2019-12-13] MEDS: MIRTAZAPINE 15 MG TABLET PO SCH (20:17)
--- NOTE | 2019-12-13 21:26 | NUR ---
GPS/RECEIVED PT UP IN JESI-CHAIR. VERY CONFUSE AND REPETITIVELY TALKING TO SELF CONTINUOUSLY. PT VERY AGITATED AND TRYING TO GET UP FREQUENTLY FROM ROOM TO ROOM. ROUTINE MEDS GIVEN AND COOPERATIVE. PT IN BED RESTING WITH NO SOB. PT ON ATB THERAPY KEFLEX FOR UTI. OFFER WATER WHILE AWAKE. WILL CONTINUE MONITOR WITH Q 15/MINS HEAD COUNT.
[2019-12-14] MEDS: LORAZEPAM 1 MG TABLET PO PRN ×2 (02:19→19:43)
--- NOTE | 2019-12-14 06:20 | NUR ---
PT HAD MULTIPLE EPISODE OF GETTING OUT OF BED, RESTLESS AND BANGING THE BED. ROOMMATE WAS UNABLE TO SLEEP AND CONSTANTLY GOING TO HELP PT. BY 0300 PT WAS TRANSFER BACK TO JESI-CHAIR., PT WAS NOT ABLE TO CALM, AND INCREASED ON BANGING CHAIR WAKING OTHER PTS. ATIVAN 1MG GIVEN. RECHECKED AFTER AN HOUR NOTED SOME EFFECT. PT SLEPT 4.0 HOURS.
[2019-12-14 07:30] VITALS: BP 104/47
[2019-12-14] MEDS: CEphaleXIN 500 MG CAPSULE PO SCH ×2 (08:25→18:08)
[2019-12-14] MEDS: risperiDONE 0.5 MG TABLET PO SCH ×2 (08:25→20:24)
[2019-12-14] MEDS: RIVASTIGMINE TARTRATE 1.5 MG CAPSULE PO SCH ×2 (08:25→20:23)
[2019-12-14] MEDS: AMLODIPINE 5 MG TABLET PO SCH (08:26)
--- NOTE | 2019-12-14 12:42 | NUR ---
Social Work Family Contact: piggery worker spoke with patient's Richie ([phone]) who stated that he is still looking into nursing homes and will let this resume writer know his decision. This resume writer will follow-up.
[2019-12-14 15:10] VITALS: BP 116/60
--- NOTE | 2019-12-14 15:22 | NUR ---
Social Work Family Contact: flume worker spoke with patient's Richie ([phone]) who stated if this feature writer can send referrals to [facility] ([phone]), [facility] ([phone]), [facility] ([phone]), and [facility] ([phone]).
--- NOTE | 2019-12-14 15:27 | NUR ---
Social Work Coordination of Care: spring floor service worker sent patient's clinicals to [facility] ([phone]), [facility] ([phone]), [facility] ([phone]), and [facility] ([phone]). Per [facility], they stated that they are not taking any patients at the moment.
--- NOTE | 2019-12-14 15:41 | NUR ---
Social Work Coordination of Care: This underwriter contacted [facility] ([phone]) and sent patient's clinicals such as H & P psychiatric notes and medication list.
[2019-12-14] MEDS: LATANOPROST OPHT DROP 2.5 ML BOTTLE EACHEYE SCH (20:23)
[2019-12-14] MEDS: MIRTAZAPINE 15 MG TABLET PO SCH (20:24)
[2019-12-14 20:29] VITALS: BP 145/68
[2019-12-14] MEDS: TEMAZEPAM 7.5 MG CAPSULE PO PRN (21:52)
[2019-12-15 07:30] VITALS: BP 90/53
[2019-12-15] MEDS: CEphaleXIN 500 MG CAPSULE PO SCH ×2 (08:08→17:20)
[2019-12-15] MEDS: RIVASTIGMINE TARTRATE 1.5 MG CAPSULE PO SCH ×2 (08:08→20:40)
[2019-12-15] MEDS: risperiDONE 0.5 MG TABLET PO SCH ×2 (08:08→20:40)
[2019-12-15] MEDS: AMLODIPINE 5 MG TABLET PO SCH (08:10)
--- NOTE | 2019-12-15 09:35 | NUR ---
Received patient this am. Awake, totally confused. B/P medication held this am. Patient ambulatory in lo, wondering from room to room. Patient needs constant redirection and reorientation to environment. Continuing to monitor anxiety, safety and any other needs that might arise. No acute issues at this time.
--- NOTE | 2019-12-15 09:52 | NUR ---
Social Work PC Hearing Notification: christmas tree farm worker contacted patient's Richie, ([phone]) and notified patients probable cause of hearing today.
--- NOTE | 2019-12-15 11:53 | NUR ---
Social Work Family Contact: print finishing worker contacted patient's sister Je ([phone]) who Facetimed this literary writer to speak to patient. This literary writer supervised patient to speak with family at the social work office.
--- NOTE | 2019-12-15 12:48 | NUR ---
Social Work Individual Therapy Note: respite worker met with patient for brief counseling to address patients delusional thought content. Patient is disorganized and disoriented. Patient is unable to have proper eye contact and is unable to have meaningful conversation with this story writer. Patient is not able to conversate with this story writer.
[2019-12-15 16:00] VITALS: BP 134/54
[2019-12-15] MEDS: LORAZEPAM 1 MG TABLET PO PRN (17:20)
[2019-12-15 20:14] VITALS: BP 99/52
[2019-12-15] MEDS: LATANOPROST OPHT DROP 2.5 ML BOTTLE EACHEYE SCH (20:40)
[2019-12-15] MEDS: MIRTAZAPINE 15 MG TABLET PO SCH (20:40)
--- NOTE | 2019-12-15 22:36 | NUR ---
GPS/RECEIVED PT UP IN JESI-CHAIR. ALERT BUT CONFUSE, NOT MUCH BEHAVIOR TODAY. COOPERATIVE WIT ROUTINE MEDICATIONS. AMBULATE TO RESTROOM AND ABLE TO REDIRECT. WILL CONTINUE TO MONITOR.
[2019-12-16] MEDS: TEMAZEPAM 7.5 MG CAPSULE PO PRN ×2 (01:38→21:59)
--- NOTE | 2019-12-16 06:43 | NUR ---
PT WAS UP AND UNABLE TO SLEEP, BY 137 RESTORIL WAS GIVEN. PT SLEPT UP TO 6.30MINS S/P RESTORIL AND CONTINUE SLEEPING. MONITOR AND KEPT SAFE DURING SHIFT. Addendum: 12/16/19 at 0649 by MARNI STEEL RN PT SLEPT 3.30MINS NOT 6.30
[2019-12-16 07:30] VITALS: BP 112/52
[2019-12-16] MEDS: CEphaleXIN 500 MG CAPSULE PO SCH (08:59)
[2019-12-16] MEDS: RIVASTIGMINE TARTRATE 1.5 MG CAPSULE PO SCH ×2 (09:00→20:37)
[2019-12-16] MEDS: AMLODIPINE 5 MG TABLET PO SCH (09:00)
[2019-12-16] MEDS: risperiDONE 0.5 MG TABLET PO SCH ×2 (09:00→20:37)
--- NOTE | 2019-12-16 10:12 | NUR ---
Received patient in bed. Incontinent of urine. Am care given. Assist patient with meal. Patient is totally confused, and needs constant redirection and reorientation. Patient ambulatory in the hallway and wonders around room to room. Gait steady. Continuing to monitor for safety. Medication compliant at this time. Other than confusion and bouts of anxiety, no acute behavioral issues this am. Monitoring UTI.
[2019-12-16] MEDS: GUAIFENESIN/DEXTROMETHORPHAN 5 ML UDC PO PRN (11:25)
--- NOTE | 2019-12-16 12:15 | NUR ---
Social Work Family Contact: plier worker spoke with patient's Richie ([phone]) and discussed placement at [facility] which he is agreeing to. Richie stated that he just wants the best care for his . This information writer assured and empathized with Richie.
[2019-12-16] MEDS: ACETAMINOPHEN 325 MG TABLET PO PRN (15:09)
[2019-12-16 16:05] VITALS: BP 104/48
[2019-12-16] MEDS: LORAZEPAM 1 MG TABLET PO PRN ×2 (17:12→23:45)
[2019-12-16 20:31] VITALS: BP 95/56
[2019-12-16] MEDS: MIRTAZAPINE 15 MG TABLET PO SCH (20:37)
[2019-12-16] MEDS: LATANOPROST OPHT DROP 2.5 ML BOTTLE EACHEYE SCH ×2 (20:37→21:04)
[2019-12-16 21:30] VITALS: BP 112/68
--- NOTE | 2019-12-16 23:00 | NUR ---
received to care, wandering about unit, confused and disoriented, intrusive with peers and staff, requiring frequent redirection. she continued to be intrusive, and gait was slightly unsteady, so she was placed in the domenico chair, for safety. PRN restoril was given at 2158, for insomnia. as of 2299, she remains awake, talking to self, up in domenico chair. remains restless. will continue to monitor closely.
--- NOTE | 2019-12-16 23:30 | NUR ---
pt remains awake, and restless, at nurses station, up in domenico chair, talking to self. PRN ativan was offered, but she refused. will continue to monitor closely.
--- NOTE | 2019-12-16 23:45 | NUR ---
PRN ativan was given. she was assisted to the bathroom, and to bed, but she remains too restless, and got right back out of bed. currently up in domenico chair for safety, talking to self.
--- NOTE | 2019-12-17 06:00 | NUR ---
assisted to bed, around 0300. slept 2.25 hours, total. continues to sleep. no distress noted.
[2019-12-17 07:49] VITALS: BP 94/51
[2019-12-17] MEDS: AMLODIPINE 5 MG TABLET PO SCH (09:00)
[2019-12-17] MEDS: RIVASTIGMINE TARTRATE 1.5 MG CAPSULE PO SCH ×2 (09:53→21:09)
[2019-12-17] MEDS: risperiDONE 0.5 MG TABLET PO SCH (09:53)
[2019-12-17] MEDS: LORAZEPAM 1 MG TABLET PO PRN ×2 (10:53→19:57)
--- NOTE | 2019-12-17 13:55 | NUR ---
RIBBON LAPPER TENDERJones notified regarding patient weak with dry cough. V/s check temp- 98.9 pulse 103, resp-18 Chest x-ray was done yesterday, their was chronic changes in her lungs.
--- NOTE | 2019-12-17 14:38 | NUR ---
Social Work Individual Therapy Note: hall worker met with patient for brief counseling to address patients delusional thought content. Patient is disorganized and disoriented. Patient threw her pillow at this principal technical writer. This principal technical writer stated why did she throw her pillow at this principal technical writer and patient responded because "she wants to sleep on the ground". Patient is unable to have a meaningful conversation with this principal technical writer and is unable to have proper eye contact.
[2019-12-17 15:02] LABS: BASOPHILS # (AUTO) 0.1 K/uL (0.0-8.0); EOSINOPHILS # (AUTO) 0.2 K/uL (0.0-0.7); EOSINOPHILS % (AUTO) 2.2 % (0.0-7.0); HEMATOCRIT 35.4 % (31.2-41.9); HEMOGLOBIN 11.8 g/dL (10.9-14.3); LYMPHOCYTES # (AUTO) 1.9 K/uL (20.0-40.0); LYMPHOCYTES % (AUTO) 22.1 % (20.5-51.5); MEAN CORPUSCULAR HEMOGLOBIN 30.8 uug (24.7-32.8); MEAN CORPUSCULAR HGB CONC 34 g/dL (32.3-35.6); MONOCYTES # (AUTO) 0.9 K/uL (2.0-10.0); MONOCYTES % (AUTO) 10.3 % (0.0-11.0); NEUTROPHILS # (AUTO) 5.6 K/uL (1.8-8.9); NEUTROPHILS % (AUTO) 64.4 % (38.5-71.5); PLATELET COUNT (AUTO) 183 K/uL (179-408); RED BLOOD CELL COUNT(AUTO) 3.84 MIL/uL (3.63-4.92); WHITE BLOOD COUNT (AUTO) 8.8 K/uL (3.8-11.8)
[2019-12-17 15:07] LABS: CREATININE 0.7 mg/dL (0.6-1.3); POTASSIUM 3.7 mmol/L (3.5-5.1)
[2019-12-17 16:00] VITALS: BP 98/74
[2019-12-17 20:00] VITALS: BP 146/62
[2019-12-17] MEDS: LATANOPROST OPHT DROP 2.5 ML BOTTLE EACHEYE SCH (20:29)
[2019-12-17] MEDS: BENZTROPINE MESYLATE 0.5 MG TABLET PO SCH (21:09)
[2019-12-17] MEDS: risperiDONE 1 MG TABLET PO SCH (21:10)
[2019-12-17] MEDS: MIRTAZAPINE 15 MG TABLET PO SCH (21:10)
[2019-12-17] MEDS: TEMAZEPAM 7.5 MG CAPSULE PO PRN (22:47)
--- NOTE | 2019-12-17 23:59 | NUR ---
received to care, wandering about unit, confused and disoriented, intrusive with peers and staff, requiring frequent redirection. she continued to be intrusive, and gait was unsteady, so she was placed in the domenico chair, for safety. PRN ativan was given at 1956, for anxiety, and restlessness. this was ineffective. she was also given her routine medications, which were also ineffective. PRN restoril was given for insomnia, at 2246. as of 2358, she remains awake, talking to self, up in domenico chair. remains restless. will continue to monitor closely.
--- NOTE | 2019-12-18 06:00 | NUR ---
slept 6.25 hours, total. assisted to bed, around 0200. continues to sleep. no distress noted.
[2019-12-18 07:30] VITALS: BP 92/59
[2019-12-18] MEDS: RIVASTIGMINE TARTRATE 1.5 MG CAPSULE PO SCH ×2 (08:48→21:01)
[2019-12-18] MEDS: AMLODIPINE 5 MG TABLET PO SCH (08:50)
[2019-12-18] MEDS: risperiDONE 0.5 MG TABLET PO SCH (08:51)
[2019-12-18] MEDS: LORAZEPAM 1 MG TABLET PO PRN ×2 (09:48→19:51)
[2019-12-18 11:30] LABS: BILIRUBIN,TOTAL 0.3 mg/dL (0.2-1.0); CREATININE 0.7 mg/dL (0.6-1.3); POTASSIUM 3.3 mmol/L (3.5-5.1); TOTAL PROTEIN, SERUM 7.3 g/dL (6.4-8.2)
[2019-12-18 11:37] LABS: BASOPHILS # (AUTO) 0.1 K/uL (0.0-8.0); BASOPHILS % (AUTO) 1.1 % (0.0-2.0); EOSINOPHILS # (AUTO) 0.2 K/uL (0.0-0.7); EOSINOPHILS % (AUTO) 2.5 % (0.0-7.0); HEMOGLOBIN 12.8 g/dL (10.9-14.3); LYMPHOCYTES # (AUTO) 1.1 K/uL (20.0-40.0); LYMPHOCYTES % (AUTO) 14.6 % (20.5-51.5); MEAN CORPUSCULAR HEMOGLOBIN 30.9 uug (24.7-32.8); MEAN CORPUSCULAR HGB CONC 34 g/dL (32.3-35.6); MEAN CORPUSCULAR VOLUME 91.4 fL (75.5-95.3); MONOCYTES # (AUTO) 0.6 K/uL (2.0-10.0); MONOCYTES % (AUTO) 8.3 % (0.0-11.0); NEUTROPHILS # (AUTO) 5.7 K/uL (1.8-8.9); NEUTROPHILS % (AUTO) 73.5 % (38.5-71.5); PLATELET COUNT (AUTO) 207 K/uL (179-408); RED BLOOD CELL COUNT(AUTO) 4.16 MIL/uL (3.63-4.92); WHITE BLOOD COUNT (AUTO) 7.8 K/uL (3.8-11.8)
--- NOTE | 2019-12-18 14:46 | NUR ---
Social Work Coordination of Care: Patient has been accepted to [facility] and patient's Richie ([phone]) wants patient to be discharged to [facility] upon discharge.
[2019-12-18 15:48] VITALS: BP 100/58
[2019-12-18] MEDS ORDERED: POTASSIUM CHLORIDE 20 MEQ TAB.PRT.SR PO ONE (16:30)
--- NOTE | 2019-12-18 16:49 | NUR ---
Patient potassium 3.3 relay to COMMISSIONED DEFENCE FORCE OFFICER Froylan, ordered Potassium 40meq PO. no complaint of pain/discomfort noted. will continue monitor
[2019-12-18] MEDS: LATANOPROST OPHT DROP 2.5 ML BOTTLE EACHEYE SCH (20:04)
[2019-12-18] MEDS: BENZTROPINE MESYLATE 0.5 MG TABLET PO SCH (21:00)
[2019-12-18] MEDS: risperiDONE 1 MG TABLET PO SCH (21:01)
[2019-12-18] MEDS: MIRTAZAPINE 15 MG TABLET PO SCH (21:01)
[2019-12-18 21:08] VITALS: BP 111/58
[2019-12-18] MEDS: TEMAZEPAM 7.5 MG CAPSULE PO PRN (22:03)
--- NOTE | 2019-12-18 23:25 | NUR ---
received to care, wandering about unit, confused and disoriented, intrusive with peers and staff, requiring frequent redirection. she continued to be intrusive, and gait was unsteady, so she was placed in the domenico chair, for safety. PRN ativan was given at 1950, for anxiety, and restlessness. this was ineffective. she was also given her routine medications, which were also ineffective. she was assisted to bed, but got right back up, so she was assisted back to domenico chair, for safety. PRN restoril was given for insomnia, at 2202. as of 2324, she remains awake, talking to self, up in domenico chair, appearing distracted by internal stimuli. remains restless. will continue to monitor closely.
[2019-12-19] MEDS: GUAIFENESIN/DEXTROMETHORPHAN 5 ML UDC PO PRN ×2 (01:27→11:14)
--- NOTE | 2019-12-19 06:00 | NUR ---
slept 5.75 hours, total. continues to sleep. no distress noted.
[2019-12-19 07:30] VITALS: BP 104/42
[2019-12-19 07:36] LABS: BASOPHILS # (AUTO) 0.1 K/uL (0.0-8.0); BASOPHILS % (AUTO) 1.1 % (0.0-2.0); EOSINOPHILS # (AUTO) 0.3 K/uL (0.0-0.7); EOSINOPHILS % (AUTO) 4.5 % (0.0-7.0); HEMATOCRIT 36.7 % (31.2-41.9); HEMOGLOBIN 12.4 g/dL (10.9-14.3); LYMPHOCYTES # (AUTO) 2.2 K/uL (20.0-40.0); LYMPHOCYTES % (AUTO) 29.5 % (20.5-51.5); MEAN CORPUSCULAR HEMOGLOBIN 30.9 uug (24.7-32.8); MEAN CORPUSCULAR HGB CONC 34 g/dL (32.3-35.6); MEAN CORPUSCULAR VOLUME 91.6 fL (75.5-95.3); MONOCYTES # (AUTO) 0.7 K/uL (2.0-10.0); NEUTROPHILS % (AUTO) 54.9 % (38.5-71.5); PLATELET COUNT (AUTO) 190 K/uL (179-408); RED BLOOD CELL COUNT(AUTO) 4.01 MIL/uL (3.63-4.92); WHITE BLOOD COUNT (AUTO) 7.3 K/uL (3.8-11.8)
[2019-12-19 08:19] LABS: BILIRUBIN,TOTAL 0.3 mg/dL (0.2-1.0); CREATININE 0.7 mg/dL (0.6-1.3); TOTAL PROTEIN, SERUM 6.8 g/dL (6.4-8.2)
[2019-12-19] MEDS: AMLODIPINE 5 MG TABLET PO SCH (09:00)
[2019-12-19] MEDS: risperiDONE 0.5 MG TABLET PO SCH (11:09)
[2019-12-19] MEDS: RIVASTIGMINE TARTRATE 1.5 MG CAPSULE PO SCH ×2 (11:10→20:58)
[2019-12-19 15:00] LABS: *BILIRUBIN,URIN NEGATIVE (NEGATIVE); *BLOOD, URINE NEGATIVE (NEGATIVE); *CLARITY,URINE CLEAR (CLEAR); *COLOR,URINE YELLOW (YELLOW); *KETONES,URINE NEGATIVE (NEGATIVE); *UROBILINOGEN,URINE 0.2 E.U./dl (NORMAL); LEUKOCYTE ESTERASE ,URINE NEGATIVE (NEGATIVE); NITRITE, URINE NEGATIVE (NEGATIVE); PH,URINE 8.5 (5.0-8.0); UGLUCOSE NEGATIVE (NEGATIVE)
[2019-12-19] MEDS: ACETAMINOPHEN 325 MG TABLET PO PRN (15:07)
[2019-12-19 16:00] VITALS: BP 100/61
[2019-12-19] MEDS: LORAZEPAM 1 MG TABLET PO PRN ×2 (18:00→20:59)
[2019-12-19] MEDS: BENZTROPINE MESYLATE 0.5 MG TABLET PO SCH (20:58)
[2019-12-19] MEDS: MIRTAZAPINE 15 MG TABLET PO SCH (20:58)
[2019-12-19] MEDS: risperiDONE 1 MG TABLET PO SCH (20:58)
[2019-12-19 21:00] VITALS: BP 128/77
[2019-12-19] MEDS: LATANOPROST OPHT DROP 2.5 ML BOTTLE EACHEYE SCH (21:24)
[2019-12-20 07:30] VITALS: BP 118/88
[2019-12-20] MEDS: risperiDONE 0.5 MG TABLET PO SCH (08:43)
[2019-12-20] MEDS: RIVASTIGMINE TARTRATE 1.5 MG CAPSULE PO SCH ×2 (08:43→20:34)
[2019-12-20] MEDS: AMLODIPINE 5 MG TABLET PO SCH (09:00)
--- NOTE | 2019-12-20 09:57 | NUR ---
GPS: received asleep in [facility], patient AOx1-2, patient confused, disorganized, nonsensical conversation, needed to assist with ADL, compliant with medication , needed redirection
--- NOTE | 2019-12-20 18:06 | NUR ---
patient still confused, took a nap in the afternoon, patient had BM2x today, fallrisk and unsteady patient assisted with ADLs, compliant with medications, patients called however patient was asleep, will continue monitor
[2019-12-20] MEDS: MIRTAZAPINE 15 MG TABLET PO SCH (20:34)
[2019-12-20] MEDS: risperiDONE 1 MG TABLET PO SCH (20:34)
[2019-12-20] MEDS: BENZTROPINE MESYLATE 0.5 MG TABLET PO SCH (20:34)
[2019-12-20] MEDS: LATANOPROST OPHT DROP 2.5 ML BOTTLE EACHEYE SCH (20:34)
[2019-12-20 20:44] VITALS: BP 101/59
--- NOTE | 2019-12-20 21:00 | NUR ---
Received patient in the hallway sitting in a domenico chair. she is noted awake a/o x1. she is calm and pleasant upon approached. patient is unable to to have a meaningful conversation. affect is blunted, mood is labile. v/s are stable at this time. safety and fall precaution in place. will continue to monitor.
[2019-12-20] MEDS: TEMAZEPAM 7.5 MG CAPSULE PO PRN (22:03)
--- NOTE | 2019-12-20 22:05 | NUR ---
PATIENT NOTED RESTLESS, AND HYPERVERBAL, SHE WAS TAKEN TO THE BATHROOM AND SHE WAS AMBULATED THROUGHOUT THE HALLWAY. SHE CONTINUE UNABLE TO FALL ASLEEP. TEMAZEPAM 7.5 MG PO PRN WAS GIVEN. WILL CONTINUE TO MONITOR.
[2019-12-20] MEDS: LORAZEPAM 1 MG TABLET PO PRN (23:54)
--- NOTE | 2019-12-21 00:05 | NUR ---
PATIENT CONTINUE HYPERVERBAL, UNABLE TO FALL ASLEEP. SHE IS ALSO NOTED ANXIOUS, AND UNABLE TO BE REDIRECTED. SHE WAS GIVEN ATIVAN 1MG PO PRN. WILL CONTINUE TO MONITOR.
--- NOTE | 2019-12-21 06:33 | NUR ---
PATIENT SLEPT FOR APPROX 2.45 HRS THROUGH THE NIGHT. PT WAS GIVEN TEMAZEPAM 7.5MG PO PRN AND ATIVAN 1MG DURING THE SHIFT. NO AGGRESSIVE/COMBATIVE BX NOTED. PATIENT IS CONTINENT, ABLE TO AMBULATE WITH ASSISTANCE OF ONE PERSON. WILL CONTINUE TO MONITOR.
[2019-12-21 07:30] VITALS: BP 137/51
--- NOTE | 2019-12-21 08:51 | NUR ---
Social Work Initial Discharge Plan: Patient will be discharged [place] [address]; ([phone]) via ambulance transportation. Please arrange Ambulance transportation for patient to be picked up at 1:00OPM. Hospital Pharmacy Director spoke with Román, Glue Size Machine Operator at [facility]; ([phone]), who stated patient will be accepted at facility today. Patient is alert and oriented x1, and is not able to plan for self-care at this time, but is willing to accept care provided for her at the facility. Patient denies any suicidal or homicidal ideations. Patient is aware and agreeable with discharge plans. Patients Richie, ([phone]) is aware and agreeable with discharge plans. Patient will continue to follow-up with her (Psychiatrist) and ([place]) [place] [address]; ([phone]). Patient will follow-up at the center. Patient presents with euthymic mood and congruent affect. Addendum: 12/21/19 at 1202 by MILTON SHELBY Patient will be discharged [place] [address]; ([phone]) via ambulance transportation. Please arrange Ambulance transportation for patient to be picked up at 1:00OPM. Hospital Pharmacy Director spoke with Román, Glue Size Machine Operator at [facility]; ([phone]), who stated patient will be accepted at facility today. Patient is alert and oriented x1, and is not able to plan for self-care at this time, but is willing to accept care provided for her at the facility. Patient denies any suicidal or homicidal ideations. Patient is aware and agreeable with discharge plans. Patients Richie, ([phone]) is aware and agreeable with discharge plans. Patient will continue to follow-up with her (Psychiatrist) and (Bootmaker) at [address] [address]; ([phone]). Patient will follow-up at the center. Patient presents with euthymic mood and congruent affect.
[2019-12-21] MEDS: RIVASTIGMINE TARTRATE 1.5 MG CAPSULE PO SCH (09:06)
[2019-12-21 09:07] VITALS: BP 124/65
[2019-12-21] MEDS: risperiDONE 0.5 MG TABLET PO SCH (09:07)
[2019-12-21] MEDS: AMLODIPINE 5 MG TABLET PO SCH (09:07)
--- NOTE | 2019-12-21 09:52 | NUR ---
GPS: received patient asleep on her bed, patient woke up and went to toilet, patient VS stable, denies SI and HI, confuse, redirectable, compliant with medication, patient has DC order today to [facility], family aware, will continue monitor
--- NOTE | 2019-12-21 13:32 | NUR ---
patient was DC to [facility], home medication instruction given to the patient , gave report to the facility nurse Lalita, patient was pepper picker by ambulance unit #[id number], , made aware of the DC,
== END 2019-12-21 13:30 | DRG 885 ==
LOC: ER 14:59 → GPS 15:57
PROVIDERS: ADMIT Psychiatry & Neurology Psychiatry; ATTEND Registered Nurse
DX: F25.9 Schizoaffective disorder, unspecified (principal); N39.0 Urinary tract infection, site not specified; E44.1 Mild protein-calorie malnutrition; R45.851 Suicidal ideations; Z68.1 Body mass index [BMI] 19.9 or less, adult; G30.9 Alzheimer's disease, unspecified; F02.80 Dementia in other diseases classified elsewhere, unspecified severity, without behavioral disturbance, psychotic disturbance, mood disturbance, and anxiety; B96.20 Unspecified Escherichia coli [E. coli] as the cause of diseases classified elsewhere; F32.9 Major depressive disorder, single episode, unspecified; M19.90 Unspecified osteoarthritis, unspecified site; F29 Unspecified psychosis not due to a substance or known physiological condition; E88.09 Other disorders of plasma-protein metabolism, not elsewhere classified
CPT/HCPCS: 36415; 71045; 84443; 85025; 87077; 87086; A4663

== ENCOUNTER 2020-07-15 13:40 | Inpatient (IN) | payer MEDICARE ==
[~2020-07-15] VITALS: Ht 162.6 cm; Wt 51.3 kg
[~2020-07-15 13:40] MED LIST changes: +AMLO-212 PO; -AMLO5TAB9 PO
[2020-07-15] MEDS ORDERED: IOHEXOL 300MG/ML 100 ML INFUS..BTL ONE ×2 (14:01→14:04)
[2020-07-15] MEDS ORDERED: IV NORMAL SALINE 250 ML IV ONE (14:01)
[2020-07-15] MEDS ORDERED: SWABABLE VALVE TRANSFER SET EA MC ONE (14:01)
[2020-07-15 14:32] LABS: BASOPHILS # (AUTO) 0.1 K/uL (0.0-8.0); EOSINOPHILS # (AUTO) 0.1 K/uL (0.0-0.7); EOSINOPHILS % (AUTO) 1.6 % (0.0-7.0); HEMOGLOBIN 12.5 g/dL (10.9-14.3); LYMPHOCYTES # (AUTO) 2.3 K/uL (20.0-40.0); LYMPHOCYTES % (AUTO) 42.1 % (20.5-51.5); MEAN CORPUSCULAR HEMOGLOBIN 31.9 uug (24.7-32.8); MEAN CORPUSCULAR HGB CONC 34 g/dL (32.3-35.6); MEAN CORPUSCULAR VOLUME 94.2 fL (75.5-95.3); MONOCYTES # (AUTO) 0.5 K/uL (2.0-10.0); MONOCYTES % (AUTO) 9.1 % (0.0-11.0); NEUTROPHILS # (AUTO) 2.5 K/uL (1.8-8.9); NEUTROPHILS % (AUTO) 46.2 % (38.5-71.5); PLATELET COUNT (AUTO) 188 K/uL (179-408); RED BLOOD CELL COUNT(AUTO) 3.93 MIL/uL (3.63-4.92); WHITE BLOOD COUNT (AUTO) 5.4 K/uL (3.8-11.8)
[2020-07-15] MEDS ORDERED: DIVA250T4 PO (14:45)
[2020-07-15] MEDS ORDERED: RIVA1PAT TD (14:45)
[2020-07-15 14:52] LABS: CARBON DIOXIDE 28 mmol/L (21-32); CHLORIDE 103 mmol/L (98-107); CREATININE 0.5 mg/dL (0.6-1.3); GLUCOSE 101 mg/dL (74-106); POTASSIUM 3.7 mmol/L (3.5-5.1); UREA NITROGEN, BLOOD 6 mg/dL (7-18)
[2020-07-15 14:55] LABS: ETHANOL < 3 MG/DL (0-0)
[2020-07-15 14:58] LABS: ALANINE AMINOTRANSFERASE 19 U/L (14-59); ALKALINE PHOSPHATASE 41 U/L (50-136); ASPARTATE AMINOTRANSFERASE 17 U/L (15-37); BILIRUBIN,DIRECT 0.1 mg/dL (0.0-0.2); BILIRUBIN,TOTAL 0.3 mg/dL (0.2-1.0); TOTAL PROTEIN, SERUM 6.4 g/dL (6.4-8.2)
[2020-07-15 15:02] LABS: ACETAMINOPHEN < 2.0 ug/mL (10-30)
[2020-07-15 15:49] LABS: MAGNESIUM 2.1 mg/dL (1.8-2.4); PHOSPHOROUS 4.1 mg/dL (2.5-4.9)
[2020-07-15 16:06] LABS: *BILIRUBIN,URIN NEGATIVE (NEGATIVE); *BLOOD, URINE NEGATIVE (NEGATIVE); *CLARITY,URINE CLEAR (CLEAR); *COLOR,URINE YELLOW (YELLOW); *KETONES,URINE NEGATIVE (NEGATIVE); *UROBILINOGEN,URINE 0.2 E.U./dl (NORMAL); LEUKOCYTE ESTERASE ,URINE NEGATIVE (NEGATIVE); NITRITE, URINE NEGATIVE (NEGATIVE); UGLUCOSE NEGATIVE (NEGATIVE)
[2020-07-15 16:14] LABS: THYROID STIMULATING HORMONE 1.506 mIU/mL (0.358-3.740)
[2020-07-15 16:19] LABS: *AMPHETAMINE, URINE NEGATIVE (NEGATIVE); *CANNABINOID, URINE NEGATIVE (NEGATIVE); *COCCAINE, URINE NEGATIVE (NEGATIVE); *OPIATE, URINE NEGATIVE (NEGATIVE); *PHENCYCLIDINE SCREEN,URINE NEGATIVE (NEGATIVE)
--- NOTE | 2020-07-15 17:18 | NUR ---
SBAR REPORT GIVEN TO MAGDALENE ARZOLA VIA TELEPHONE.
[2020-07-15 17:45] VITALS: BP 129/53
--- NOTE | 2020-07-15 17:45 | NUR ---
Pt trans to MHU, NAD noted.
[2020-07-15] MEDS ORDERED: MAG HYDROX/AL HYDROX/SIMETH 30 ML LIQUID UDC PO PRN (18:00)
[2020-07-15] MEDS ORDERED: MAGNESIUM HYDROXIDE 30 ML LIQUID UDC PO PRN (18:00)
[2020-07-15] MEDS ORDERED: BLOOD SUGAR DIAGNOSTIC 1 EACH STRIP VI ONE (18:00)
--- NOTE | 2020-07-15 18:40 | NUR ---
ADMISSION NOTE: Patient admitted to MHU from the emergency department on a 5150 hold for GD. Patient was provided with education about the reason for admission, oriented to the unit, and educated about unit rules and policies. Patient provided with advisement and patient's rights handbook. Skin assessment done by RN. patient's belongings and valuables inventoried with patient, and valuables placed in safe. Per 5150 hold, patient was brought to the ED by her for "sleep deprivation" and patient attempting to "leave her home middle of the night at 3am". Upon face to face assessment, patient is alert and orientated to name only. She does not know the date or reason for admission. Patient believes that she lives at home with her mother and that her mother is her primary caregiver. Patient is unable to follow linear and logical conversation. She has disorganized, tangential thoughts. Patient is superficially bright and affect is incongruent. Patient provided with reality orientation and redirection, but she is unable to participate in education at this time. Patient denies history of mental illness or inpatient mental treatment, despite previous history of admission to this unit earlier this year. Patient denies suicidal and homicidal ideation. She denies auditory, visual, tactile, and olfactory hallucinations.
[2020-07-15 20:00] VITALS: BP 114/66
[2020-07-15] MEDS ORDERED: BIMATOPROST 0.01% OPHT DROP 2.5 ML BOTTLE EACHEYE SCH (21:00)
[2020-07-15] MEDS: LORAZEPAM 1 MG TABLET PO PRN (21:02)
[2020-07-15] MEDS: BRIMONIDINE 0.2% OPHT DROP 10 ML BOTTLE EACHEYE SCH (21:36)
--- NOTE | 2020-07-15 21:40 | NUR ---
Rn- Patient Alphagan 0.2% and Lumigan 0.01% medication unavailable. (Not administered).
--- NOTE | 2020-07-15 23:49 | NUR ---
GPS/Rn - Patient was received sitting up in chair and noted pacing to dinning room on and off. Patient was noted very confuse and unable to make sense of reality. Delusional and asking for her Mother frequently, standing by the unit exit door and sometimes pushing on it to AWOL. Patient restless and pacing, wondering into others rooms. Easily re-directable but will immediately forget where she is and walk into another room.Patient is incongruous speaking about her sisters, mother and says things like they are waiting for me. Reality oriented and frequent reminder of her placement. PRN was given Ativan but not effective. Patient unable to stay calm or sit, very confuse. Sleeping aid given and now noted being effective, sitting up in domenico chair at this time. Q/15mins head count initiated and will monitor for AWOL and safety precaution.
[2020-07-16] MEDS: TEMAZEPAM 7.5 MG CAPSULE PO PRN (00:06)
[2020-07-16 07:30] VITALS: BP 108/72
[2020-07-16] MEDS: AMLODIPINE 5 MG TABLET PO SCH (08:49)
--- NOTE | 2020-07-16 12:00 | NUR ---
Gps/Harmonica Maker- Patient's called, provided informations about her Psych medication, Home meds. ( Risperdal 0.25 mg po daily , Depakote 250 mg po BID, Lexapro 10 mg po daily) . Also gave tel# of her Psychiatrist from outside Dr James Cullen [phone]
[2020-07-16 15:25] VITALS: BP 106/81
--- NOTE | 2020-07-16 17:19 | NUR ---
Gps/Flavoring Maker- Constantly needing redirections, kept coming to the nurses station, forgetful, pleasantly confused, no aggressive behavior noted speech incoherent .
[2020-07-16 20:00] VITALS: BP 125/56
[2020-07-16] MEDS: BRIMONIDINE 0.2% OPHT DROP 10 ML BOTTLE EACHEYE SCH (21:00)
[2020-07-16] MEDS: MIRTAZAPINE 15 MG TABLET PO SCH (21:12)
[2020-07-16] MEDS: RIVASTIGMINE TARTRATE 1.5 MG CAPSULE PO SCH (21:12)
[2020-07-16] MEDS: LATANOPROST OPHT DROP 2.5 ML BOTTLE EACHEYE SCH (21:12)
[2020-07-16] MEDS: risperiDONE 0.5 MG TABLET PO SCH (21:12)
[2020-07-16] MEDS: ATORVASTATIN 10 MG TABLET PO SCH (21:12)
[2020-07-17] MEDS: LORAZEPAM 1 MG TABLET PO PRN ×2 (05:37→15:42)
[2020-07-17 07:30] VITALS: BP 116/53
[2020-07-17] MEDS: AMLODIPINE 5 MG TABLET PO SCH (08:29)
[2020-07-17] MEDS: RIVASTIGMINE TARTRATE 1.5 MG CAPSULE PO SCH ×2 (08:29→20:02)
[2020-07-17] MEDS: risperiDONE 0.5 MG TABLET PO SCH ×2 (08:29→20:02)
--- NOTE | 2020-07-17 11:47 | NUR ---
Gps/Boiling House Oiler- patient's saturnino called, was able to talked to patient twice this am. patient gets anxious, , wanders to other patient;s room needing constant redirections,, monitored safety, constant reorientation
--- NOTE | 2020-07-17 13:05 | NUR ---
gps/Objective C Developer- Toileted as needed ,urgency noted, but no incontinence, needed redirections . able to talked to her Christopher twice .
--- NOTE | 2020-07-17 15:00 | NUR ---
Gps/Terrazzo Polisher Helper- Kept up on her domenico-chair, monitored closely for safety and needs, tends to wander to other patient's room, needing constant redirections . Anxious this pm, > confused, claimed she needs to go home her is outside waiting. . constant redirections provided.
[2020-07-17 16:00] VITALS: BP 127/67
[2020-07-17] MEDS: LATANOPROST OPHT DROP 2.5 ML BOTTLE EACHEYE SCH (20:02)
[2020-07-17] MEDS: ATORVASTATIN 10 MG TABLET PO SCH (20:02)
[2020-07-17] MEDS: MIRTAZAPINE 15 MG TABLET PO SCH (20:02)
[2020-07-17 20:07] VITALS: BP 111/58
[2020-07-17] MEDS: BRIMONIDINE 0.2% OPHT DROP 10 ML BOTTLE EACHEYE SCH (21:00)
--- NOTE | 2020-07-17 22:08 | NUR ---
Patient's alphagan eye drops not given. medication not available in med room. production welding supervisor was notify and she stated to let the Pharmacy know in the morning.
[2020-07-18] MEDS: TEMAZEPAM 7.5 MG CAPSULE PO PRN (00:04)
[2020-07-18] MEDS: LORAZEPAM 1 MG TABLET PO PRN ×2 (01:15→19:28)
[2020-07-18 07:30] VITALS: BP 128/71
[2020-07-18] MEDS: RIVASTIGMINE TARTRATE 1.5 MG CAPSULE PO SCH ×2 (09:03→20:12)
[2020-07-18] MEDS: risperiDONE 0.5 MG TABLET PO SCH ×2 (09:03→20:12)
[2020-07-18] MEDS: AMLODIPINE 5 MG TABLET PO SCH (09:03)
--- NOTE | 2020-07-18 12:21 | NUR ---
Family Contact: SW called Richie ([phone]), pts , and discussed the pts treatment plan. Pts stated that he wants the pt home as soon as possible and informed the SW about the pts outside treatment team. SW informed him that she would keep him updated with the pts discharge planning.
--- NOTE | 2020-07-18 13:27 | NUR ---
Initial Discharge Plan: Pt currently resides at home located at [address] [place] [address], [address] [facility], [place] [address] with her , Richie ([phone]). Per pt, she would like to return home. SW will work with the pt and the MD regarding appropriate discharge planning. SW will form a safe and proper discharge.
[2020-07-18 15:36] VITALS: BP 105/56
--- NOTE | 2020-07-18 16:14 | NUR ---
Firearms Report: Manager Of Learning completed and submitted a [employer] firearms report for 5150 grave disability certification. A copy of report has been placed in patient chart.
[2020-07-18] MEDS: ACETAMINOPHEN 325 MG TABLET PO PRN (16:53)
[2020-07-18] MEDS: ATORVASTATIN 10 MG TABLET PO SCH (20:12)
[2020-07-18] MEDS: MIRTAZAPINE 15 MG TABLET PO SCH (20:12)
[2020-07-18] MEDS: LATANOPROST OPHT DROP 2.5 ML BOTTLE EACHEYE SCH (20:12)
[2020-07-18 20:22] VITALS: BP 105/59
[2020-07-19 07:30] VITALS: BP 133/46
[2020-07-19] MEDS: risperiDONE 0.5 MG TABLET PO SCH (09:30)
[2020-07-19] MEDS: AMLODIPINE 5 MG TABLET PO SCH (09:30)
[2020-07-19] MEDS: RIVASTIGMINE TARTRATE 1.5 MG CAPSULE PO SCH ×2 (09:30→21:30)
[2020-07-19 16:40] VITALS: BP 129/72
[2020-07-19] MEDS: ENSURE ENLIVE (VAN) 240 ML LIQUID PO SCH (17:03)
[2020-07-19] MEDS: ACETAMINOPHEN 325 MG TABLET PO PRN (18:21)
[2020-07-19] MEDS: LORAZEPAM 1 MG TABLET PO PRN (18:22)
[2020-07-19 20:00] VITALS: BP 130/62
[2020-07-19] MEDS: LATANOPROST OPHT DROP 2.5 ML BOTTLE EACHEYE SCH (21:00)
[2020-07-19] MEDS: ATORVASTATIN 10 MG TABLET PO SCH (21:30)
[2020-07-19] MEDS: MIRTAZAPINE 15 MG TABLET PO SCH (21:30)
[2020-07-20] MEDS: PANTOPRAZOLE SODIUM 40 MG TABLET.DR PO SCH (07:00)
[2020-07-20 07:30] VITALS: BP 110/54
[2020-07-20] MEDS: ENSURE ENLIVE (VAN) 240 ML LIQUID PO SCH ×2 (08:00→16:07)
[2020-07-20 08:45] LABS: BASOPHILS # (AUTO) 0.1 K/uL (0.0-8.0); BASOPHILS % (AUTO) 2.2 % (0.0-2.0); EOSINOPHILS # (AUTO) 0.2 K/uL (0.0-0.7); EOSINOPHILS % (AUTO) 3.7 % (0.0-7.0); HEMATOCRIT 38.1 % (31.2-41.9); LYMPHOCYTES # (AUTO) 2.5 K/uL (20.0-40.0); LYMPHOCYTES % (AUTO) 43.9 % (20.5-51.5); MEAN CORPUSCULAR HGB CONC 34 g/dL (32.3-35.6); MEAN CORPUSCULAR VOLUME 93.8 fL (75.5-95.3); MONOCYTES # (AUTO) 0.5 K/uL (2.0-10.0); MONOCYTES % (AUTO) 9.1 % (0.0-11.0); NEUTROPHILS # (AUTO) 2.4 K/uL (1.8-8.9); NEUTROPHILS % (AUTO) 41.1 % (38.5-71.5); PLATELET COUNT (AUTO) 196 K/uL (179-408); RED BLOOD CELL COUNT(AUTO) 4.06 MIL/uL (3.63-4.92); WHITE BLOOD COUNT (AUTO) 5.8 K/uL (3.8-11.8)
[2020-07-20] MEDS: chlorproMAZINE 25 MG TABLET PO SCH ×3 (08:56→16:08)
[2020-07-20] MEDS: RIVASTIGMINE TARTRATE 1.5 MG CAPSULE PO SCH ×2 (08:56→21:34)
[2020-07-20] MEDS: AMLODIPINE 5 MG TABLET PO SCH (08:56)
[2020-07-20 09:26] LABS: BILIRUBIN,TOTAL 0.5 mg/dL (0.2-1.0); CREATININE 0.7 mg/dL (0.6-1.3); MAGNESIUM 2.3 mg/dL (1.8-2.4); PHOSPHOROUS 4.7 mg/dL (2.5-4.9); POTASSIUM 3.9 mmol/L (3.5-5.1); TOTAL PROTEIN, SERUM 6.3 g/dL (6.4-8.2)
[2020-07-20 16:11] VITALS: BP 106/67
[2020-07-20] MEDS: LORAZEPAM 1 MG TABLET PO PRN (17:05)
--- NOTE | 2020-07-20 17:57 | NUR ---
Received patient a 69-year-old female, dressed in a hospital gown, in no acute physical distress. The patient is alert, disoriented x 3, confused, disorganized. Speech is normal tone and volume. Mood euthymic. Affect is restricted. The patient denied auditory hallucinations or visual hallucination, but is very delusional and paranoid. Denies suicidal ideation or homicidal ideation. Judgment and insight impaired. Impulse control is questionable.patient has poor memory and constant redirection throughout the day, patient would try to go to other patients room, assisted to activity room, patient did some art work but did not finish and start looking for her family, constant reality orientation was needed , patient had phonecall with and patient still confused and disoriented, patient compliant with her medication , patient monitored [id number] , no sign of distress at this time
[2020-07-20 20:00] VITALS: BP 95/54
[2020-07-20] MEDS: ATORVASTATIN 10 MG TABLET PO SCH (21:34)
[2020-07-20] MEDS: TEMAZEPAM 7.5 MG CAPSULE PO PRN (21:34)
[2020-07-20] MEDS: MIRTAZAPINE 15 MG TABLET PO SCH (21:34)
[2020-07-20] MEDS: LATANOPROST OPHT DROP 2.5 ML BOTTLE EACHEYE SCH (21:36)
[2020-07-21] MEDS: PANTOPRAZOLE SODIUM 40 MG TABLET.DR PO SCH ×2 (06:51→08:35)
[2020-07-21 07:30] VITALS: BP 106/54
[2020-07-21] MEDS: RIVASTIGMINE TARTRATE 1.5 MG CAPSULE PO SCH ×2 (08:35→20:33)
[2020-07-21] MEDS: chlorproMAZINE 25 MG TABLET PO SCH ×3 (08:35→17:00)
[2020-07-21] MEDS: AMLODIPINE 5 MG TABLET PO SCH (08:36)
[2020-07-21] MEDS: ENSURE ENLIVE (VAN) 240 ML LIQUID PO SCH ×2 (08:38→17:00)
--- NOTE | 2020-07-21 10:43 | NUR ---
PC Hearing Note: Pts [id number] hold was upheld for grave disability.
--- NOTE | 2020-07-21 11:02 | NUR ---
Family Contact: MILTON called Richie ([phone]), pts , and informed him that the pt had her probable cause hearing and the results were that the hold was upheld for grave disability. MILTON then went on to explain to him that the pt will be discharged in a couple of days and that he will be informed ahead of time. MILTON stated that the pt has been showing improvement but is still adjusting to the medications.
[2020-07-21 16:00] VITALS: BP 100/50
[2020-07-21 20:00] VITALS: BP 105/62
[2020-07-21] MEDS: ATORVASTATIN 10 MG TABLET PO SCH (20:33)
[2020-07-21] MEDS: LORAZEPAM 1 MG TABLET PO PRN (20:33)
[2020-07-21] MEDS: MIRTAZAPINE 15 MG TABLET PO SCH (20:33)
[2020-07-21] MEDS: LATANOPROST OPHT DROP 2.5 ML BOTTLE EACHEYE SCH (20:38)
[2020-07-21] MEDS: TEMAZEPAM 7.5 MG CAPSULE PO PRN (22:52)
[2020-07-22 07:30] VITALS: BP 116/55
[2020-07-22] MEDS: chlorproMAZINE 25 MG TABLET PO SCH ×3 (08:22→16:02)
[2020-07-22] MEDS: ENSURE ENLIVE (VAN) 240 ML LIQUID PO SCH ×2 (08:22→18:00)
[2020-07-22] MEDS: RIVASTIGMINE TARTRATE 1.5 MG CAPSULE PO SCH ×2 (08:22→20:19)
[2020-07-22] MEDS: AMLODIPINE 5 MG TABLET PO SCH (08:22)
[2020-07-22] MEDS: PANTOPRAZOLE SODIUM 40 MG TABLET.DR PO SCH (08:22)
[2020-07-22 15:15] VITALS: BP 134/60
[2020-07-22] MEDS: LATANOPROST OPHT DROP 2.5 ML BOTTLE EACHEYE SCH (20:19)
[2020-07-22] MEDS: ATORVASTATIN 10 MG TABLET PO SCH (20:19)
[2020-07-22] MEDS: MIRTAZAPINE 15 MG TABLET PO SCH (20:19)
[2020-07-23 00:55] VITALS: BP 121/56
--- NOTE | 2020-07-23 05:46 | NUR ---
Received patient in bed last night. Total sleep hours 9.45. Up a couple times to void but otherwise patient slept well. Patient continues to be confused and disoriented. Redirection and reorientation provided as needed. Continuing to monitor for safety.
[2020-07-23 07:30] VITALS: BP 123/60
[2020-07-23] MEDS: chlorproMAZINE 25 MG TABLET PO SCH ×3 (08:22→20:14)
[2020-07-23] MEDS: RIVASTIGMINE TARTRATE 1.5 MG CAPSULE PO SCH ×2 (08:23→20:14)
[2020-07-23] MEDS: PANTOPRAZOLE SODIUM 40 MG TABLET.DR PO SCH (08:23)
[2020-07-23] MEDS: AMLODIPINE 5 MG TABLET PO SCH (08:23)
[2020-07-23] MEDS: ENSURE ENLIVE (VAN) 240 ML LIQUID PO SCH ×2 (08:28→17:42)
[2020-07-23] MEDS ORDERED: chlorproMAZINE 25 MG TABLET PO SCH (09:00)
--- NOTE | 2020-07-23 12:25 | NUR ---
PT WANDERING THE UNIT. PLEASANT BUT CONFUSED. COMPLIANT WITH MEDICATIONS AND CARE. REQUIRES FREQUENT REDIRECTION. OFTEN WANDERS INTO OTHER PT'S ROOMS OR NURSES STATION.
[2020-07-23 16:00] VITALS: BP 101/61
[2020-07-23] MEDS: LATANOPROST OPHT DROP 2.5 ML BOTTLE EACHEYE SCH (20:13)
[2020-07-23] MEDS: MIRTAZAPINE 15 MG TABLET PO SCH (20:14)
[2020-07-23] MEDS: ATORVASTATIN 10 MG TABLET PO SCH (20:14)
[2020-07-23 20:17] VITALS: BP 133/55
--- NOTE | 2020-07-24 06:05 | NUR ---
Received patient last night wandering around the unit. Constant redirection needed and provided. This patient is very confused. Total sleep was 6.45. hours. Patient up to the bathroom a few times with assistance . Continuing to monitor for safety. No behavioral issues noted.
[2020-07-24 07:30] VITALS: BP 133/71
[2020-07-24] MEDS: chlorproMAZINE 25 MG TABLET PO SCH ×3 (08:24→20:22)
[2020-07-24] MEDS: RIVASTIGMINE TARTRATE 1.5 MG CAPSULE PO SCH ×2 (08:24→20:19)
[2020-07-24] MEDS: PANTOPRAZOLE SODIUM 40 MG TABLET.DR PO SCH (08:25)
[2020-07-24] MEDS: AMLODIPINE 5 MG TABLET PO SCH (08:37)
[2020-07-24] MEDS: ENSURE ENLIVE (VAN) 240 ML LIQUID PO SCH ×2 (08:52→17:00)
[2020-07-24 16:21] VITALS: BP 119/56
[2020-07-24 20:09] VITALS: BP 125/59
[2020-07-24] MEDS: MIRTAZAPINE 15 MG TABLET PO SCH (20:19)
[2020-07-24] MEDS: ATORVASTATIN 10 MG TABLET PO SCH (20:19)
[2020-07-24] MEDS: LATANOPROST OPHT DROP 2.5 ML BOTTLE EACHEYE SCH (20:22)
[2020-07-25] MEDS: ACETAMINOPHEN 325 MG TABLET PO PRN (06:41)
--- NOTE | 2020-07-25 07:00 | NUR ---
patient slept for approx 4.30 hrs through the night. she continue forgetful but she is redirectable. will continue to monitor.
[2020-07-25 07:30] VITALS: BP 121/70
[2020-07-25] MEDS: chlorproMAZINE 25 MG TABLET PO SCH ×3 (08:21→20:09)
[2020-07-25] MEDS: RIVASTIGMINE TARTRATE 1.5 MG CAPSULE PO SCH ×2 (08:21→20:09)
[2020-07-25] MEDS: ENSURE ENLIVE (VAN) 240 ML LIQUID PO SCH ×2 (08:22→16:27)
[2020-07-25] MEDS: AMLODIPINE 5 MG TABLET PO SCH (08:22)
[2020-07-25 15:22] VITALS: BP 119/75
[2020-07-25 19:45] VITALS: BP 161/68
[2020-07-25] MEDS: MIRTAZAPINE 15 MG TABLET PO SCH (20:09)
[2020-07-25] MEDS: LATANOPROST OPHT DROP 2.5 ML BOTTLE EACHEYE SCH (20:09)
[2020-07-25] MEDS: ATORVASTATIN 10 MG TABLET PO SCH (20:09)
[2020-07-25 20:30] VITALS: BP 126/74
[2020-07-25] MEDS: TEMAZEPAM 7.5 MG CAPSULE PO PRN (22:22)
[2020-07-26] MEDS: PANTOPRAZOLE SODIUM 40 MG TABLET.DR PO SCH (06:34)
--- NOTE | 2020-07-26 06:46 | NUR ---
GPS: Pt.slept for 6.45 minutes last night. Remains with confusion and disorientation but easily re-directable. No increased agitation noted. Med.compliant. Safe environment provided. Will continue to monitor.
[2020-07-26 07:30] VITALS: BP 96/51
[2020-07-26] MEDS: chlorproMAZINE 25 MG TABLET PO SCH ×3 (08:17→20:16)
[2020-07-26] MEDS: RIVASTIGMINE TARTRATE 1.5 MG CAPSULE PO SCH ×2 (08:17→20:16)
[2020-07-26] MEDS: ENSURE ENLIVE (VAN) 240 ML LIQUID PO SCH ×2 (08:18→17:53)
[2020-07-26] MEDS: AMLODIPINE 5 MG TABLET PO SCH (08:18)
--- NOTE | 2020-07-26 11:43 | NUR ---
SW Individual Counseling: merchandise worker met with patient for brief counseling and assessed for neglecting self-care at home. Patient appeared disorganized, disoriented, and confused. This SW was unable to have a proper conversation with pt as pt was off topic and was being inappropriate.
[2020-07-26 16:34] VITALS: BP 110/59
[2020-07-26 20:00] VITALS: BP 106/67
[2020-07-26] MEDS: ATORVASTATIN 10 MG TABLET PO SCH (20:16)
[2020-07-26] MEDS: LATANOPROST OPHT DROP 2.5 ML BOTTLE EACHEYE SCH (20:16)
[2020-07-26] MEDS: MIRTAZAPINE 15 MG TABLET PO SCH (20:16)
[2020-07-27] MEDS: PANTOPRAZOLE SODIUM 40 MG TABLET.DR PO SCH (06:50)
[2020-07-27 07:30] VITALS: BP 111/54
--- NOTE | 2020-07-27 08:34 | NUR ---
Discharge Note: Patient will be discharged home to [address], [place] [address]; ([phone]). Patients Richie ([phone]) will medicinal plant picker pt at 1PM. Upon discharge, patient appear to be calm, cooperative and happy to be going home. Patient denies suicidal and homicidal ideation. Patient will follow up (It Systems Analyst Consultant) Dr. Muhammad located at [address] [place] [address]; on July 28 at 11:15am and will follow up with (Psychiatrist) Dr. Cullen located at [address], [place] [address]; scheduled for July 27 at 3:15PM and wants to fax on Saturday ([phone]). Patient presented with euthymic and congruent mood.
[2020-07-27 09:05] VITALS: BP 111/54
[2020-07-27] MEDS: AMLODIPINE 5 MG TABLET PO SCH (09:05)
[2020-07-27] MEDS: RIVASTIGMINE TARTRATE 1.5 MG CAPSULE PO SCH (09:05)
[2020-07-27] MEDS: ENSURE ENLIVE (VAN) 240 ML LIQUID PO SCH (09:06)
[2020-07-27] MEDS: chlorproMAZINE 25 MG TABLET PO SCH ×2 (09:06→12:19)
--- NOTE | 2020-07-27 14:25 | NUR ---
Pt is being discharged home. Pt's is picking her up. VS are stable, pt is calm, A/Ox2, as per baseline. Discharge instructions, including f/u appointments and new prescribions were given to the , who is verbalizing understanding. All belongings returned.
== END 2020-07-27 13:30 | disposition home or self-care (01) | DRG 885 ==
LOC: ER 13:40 → GPS 16:53
PROVIDERS: ADMIT Psychiatry & Neurology Psychiatry; ATTEND Internal Medicine
DX: F29 Unspecified psychosis not due to a substance or known physiological condition (principal); R45.851 Suicidal ideations; F03.91 Unspecified dementia, unspecified severity, with behavioral disturbance; Z68.1 Body mass index [BMI] 19.9 or less, adult; F23 Brief psychotic disorder; E78.5 Hyperlipidemia, unspecified; K80.20 Calculus of gallbladder without cholecystitis without obstruction; M19.90 Unspecified osteoarthritis, unspecified site; R62.7 Adult failure to thrive; Z87.440 Personal history of urinary (tract) infections; I10 Essential (primary) hypertension; K21.9 Gastro-esophageal reflux disease without esophagitis; K21.00 Gastro-esophageal reflux disease with esophagitis, without bleeding; F32.9 Major depressive disorder, single episode, unspecified
CPT/HCPCS: 36415; 70030-TC; 70450; 71045; 82378; 83690; 83735; 84100; 84443; 84481; 85025; 85730; 93005; A4663; C1758; G0480; J7050; Q0161; Q9967

== ENCOUNTER 2020-09-05 14:20 | Inpatient (IN) | payer MEDICARE ==
[~2020-09-05] VITALS: Ht 152.4 cm; Wt 51.7 kg
[~2020-09-05 14:20] MED LIST changes: -BRIM5DRO EACHEYE; -CYAN-10 INJ
[2020-09-05] MEDS ORDERED: RISP0.5T5 PO (14:32)
--- NOTE | 2020-09-05 14:48 | NUR ---
Pt brought in by for psych eval. Pt denies SI and HI. Pt in no acute distress alert and oriented x 2. Placed in gown. Awaiting MD ashley.
[2020-09-05 15:15] LABS: BASOPHILS # (AUTO) 0.1 K/uL (0.0-8.0); BASOPHILS % (AUTO) 0.8 % (0.0-2.0); EOSINOPHILS # (AUTO) 0.1 K/uL (0.0-0.7); HEMATOCRIT 37.3 % (31.2-41.9); HEMOGLOBIN 12.6 g/dL (10.9-14.3); LYMPHOCYTES # (AUTO) 2.2 K/uL (20.0-40.0); LYMPHOCYTES % (AUTO) 18.9 % (20.5-51.5); MEAN CORPUSCULAR HEMOGLOBIN 31.3 uug (24.7-32.8); MEAN CORPUSCULAR HGB CONC 34 g/dL (32.3-35.6); MEAN CORPUSCULAR VOLUME 92.9 fL (75.5-95.3); MONOCYTES # (AUTO) 0.5 K/uL (2.0-10.0); MONOCYTES % (AUTO) 4.3 % (0.0-11.0); NEUTROPHILS # (AUTO) 8.8 K/uL (1.8-8.9); PLATELET COUNT (AUTO) 258 K/uL (179-408); RED BLOOD CELL COUNT(AUTO) 4.02 MIL/uL (3.63-4.92); WHITE BLOOD COUNT (AUTO) 11.8 K/uL (3.8-11.8)
[2020-09-05 15:20] LABS: ALANINE AMINOTRANSFERASE 17 U/L (14-59); ALKALINE PHOSPHATASE 59 U/L (50-136); ASPARTATE AMINOTRANSFERASE 13 U/L (15-37); BILIRUBIN,DIRECT 0.1 mg/dL (0.0-0.2); BILIRUBIN,TOTAL 0.3 mg/dL (0.2-1.0); CARBON DIOXIDE 31 mmol/L (21-32); CHLORIDE 104 mmol/L (98-107); CREATININE 0.9 mg/dL (0.6-1.3); GLUCOSE 95 mg/dL (74-106); POTASSIUM 3.8 mmol/L (3.5-5.1); TOTAL PROTEIN, SERUM 7.2 g/dL (6.4-8.2); UREA NITROGEN, BLOOD 17 mg/dL (7-18)
[2020-09-05 15:24] LABS: ETHANOL < 3 MG/DL (0-0)
[2020-09-05 15:25] LABS: ACETAMINOPHEN < 2.0 ug/mL (10-30)
--- NOTE | 2020-09-05 15:43 | NUR ---
PT MEDICALLY CLEARED BY ER , CALLED MICK MONTESINOS FOR PSY HERSON [place].
--- NOTE | 2020-09-05 16:09 | NUR ---
covid antigen negative
[2020-09-05] MEDS ORDERED: MIRT15TA7 PO (16:32)
[2020-09-05] MEDS ORDERED: PANT40TA2 PO (16:32)
[2020-09-05] MEDS ORDERED: LATA2.5D15 EACHEYE (16:32)
[2020-09-05] MEDS ORDERED: DIVA250T4 PO (16:32)
[2020-09-05] MEDS ORDERED: RIVA1PAT3 TP (16:32)
--- NOTE | 2020-09-05 16:33 | NUR ---
MAIKEL MAYER CALLED TO VERIFY THE PT.
[2020-09-05 16:36] LABS: *BILIRUBIN,URIN NEGATIVE (NEGATIVE); *BLOOD, URINE NEGATIVE (NEGATIVE); *CLARITY,URINE CLEAR (CLEAR); *COLOR,URINE YELLOW (YELLOW); *KETONES,URINE NEGATIVE (NEGATIVE); *UROBILINOGEN,URINE 0.2 E.U./dl (NORMAL); LEUKOCYTE ESTERASE ,URINE NEGATIVE (NEGATIVE); NITRITE, URINE NEGATIVE (NEGATIVE); UGLUCOSE NEGATIVE (NEGATIVE)
--- NOTE | 2020-09-05 16:38 | NUR ---
Keshwan Scanlon, psych business unit director at bedside to evaluate patient.
[2020-09-05 16:45] LABS: *AMPHETAMINE, URINE NEGATIVE (NEGATIVE); *CANNABINOID, URINE NEGATIVE (NEGATIVE); *COCCAINE, URINE NEGATIVE (NEGATIVE); *OPIATE, URINE NEGATIVE (NEGATIVE); *PHENCYCLIDINE SCREEN,URINE NEGATIVE (NEGATIVE)
--- NOTE | 2020-09-05 17:25 | NUR ---
SBAR report given to Izaiah DEL CASTILLO in MHU
--- NOTE | 2020-09-05 17:48 | NUR ---
Pt escorted to U by MAGDALENE.
[2020-09-05] MEDS ORDERED: MAGNESIUM HYDROXIDE 30 ML LIQUID UDC PO PRN (18:00)
[2020-09-05] MEDS ORDERED: BLOOD SUGAR DIAGNOSTIC 1 EACH STRIP VI ONE (18:00)
[2020-09-05] MEDS ORDERED: MAG HYDROX/AL HYDROX/SIMETH 30 ML LIQUID UDC PO PRN (18:00)
--- NOTE | 2020-09-05 18:13 | NUR ---
Admission Note: Patient admitted to the MHU room 141-B from the ER accompanied by nursing staff on a 5150 hold for GD. Patient's personal belongings and valuables inventoried with patient and placed in patient locker. Patient provided with orientation to the unit, unit rules, and unit policies. Patient provided with 5150 advisement and provided with patient's rights handbook. Upon apny-ck-arec evaluation, patient is alert and oriented to name only. She is ambulatory with a steady gait. Dressed appropriately in her own clothing. She is superficially pleasant, restless, forgetful, and confused. Patient does not know why she was brought to this unit and does not recall being brought to the ER by her , Richie Queen. She continuously asks to be let out so she can go back home. Patient requires constant redirection and reality orientation. Patient denies suicidal and homicidal ideation. Patient denies auditory/visual/tactile/olfactory hallucinations. Patient does not recall her previous hospitalizations on this unit. She denies current or history of substance abuse, denies smoking. Patient gave permission to call her and let him know she was admitted. This copywriter spoke with patient's , who stated patient does not have an advanced directive for health care and that she received her Influenza vaccine in 04/2020 and received the Pneumococcal vaccine but forgot when. states that the patient was "uncontrollable" at home with her behaviors.
[2020-09-05 18:32] VITALS: BP 117/72
[2020-09-05 20:00] VITALS: BP 131/74
[2020-09-05] MEDS: MIRTAZAPINE 15 MG TABLET PO SCH (20:30)
[2020-09-05] MEDS: DIVALPROEX 250 MG TABLET.DR PO SCH (20:30)
[2020-09-05] MEDS: LORAZEPAM 0.5 MG TABLET PO PRN (20:30)
[2020-09-05] MEDS: risperiDONE 0.5 MG TABLET PO SCH (20:30)
[2020-09-05] MEDS: TEMAZEPAM 7.5 MG CAPSULE PO PRN (23:06)
--- NOTE | 2020-09-06 06:08 | NUR ---
Received patient last night wandering aimlessly around the unit. Patient is very forgetful and has no information retention abilities. Constant reorientation and redirection provide. Patient knows her name and that is about it. This patient is compliant with medications. At one point patient spoke to on the phone but did not remember doing so a few minutes later. Dry Food Products Mixer monitored patient for safety and frequently rounded on her. Total sleep was 5.00 hours. Assistance given whenever needed and no behavioral issues noted.
[2020-09-06 07:30] VITALS: BP 121/67
[2020-09-06] MEDS: DIVALPROEX 250 MG TABLET.DR PO SCH ×2 (08:10→20:18)
[2020-09-06] MEDS: risperiDONE 0.5 MG TABLET PO SCH ×2 (08:10→20:19)
[2020-09-06] MEDS: ACETAMINOPHEN 325 MG TABLET PO PRN (12:39)
[2020-09-06] MEDS: LORAZEPAM 0.5 MG TABLET PO PRN ×2 (12:39→22:26)
--- NOTE | 2020-09-06 14:15 | NUR ---
Family Contact: MILTON called the pts , Richie ([phone]), and discussed the pts discharge plan and he stated that he cannot care for the pt at their home anymore. MILTON suggested that the pts consider a nursing facility and he stated that he agrees to the placement. SW stated that she will keep him involved.
--- NOTE | 2020-09-06 15:53 | NUR ---
GPS: Nursing Notes: Thought Disorder: Patient is awake and responding to her name, wandering around the unit aimlessly, unable to find her room by self, intrusive by getting into other patient's room, confused, disoriented, poor insight, impaired judgment, impaired short term memory, constantly looking for the exit door, believes that her is going to pick her up, "I got to go... My is outside waiting for me...", constantly redirected and reoriented to reality during shift, spoke with her over the phone several time, but forgetful, minimal participation in therapeutic groups, constantly pacing the hallway and pushing the exit doors, unable to formulate a viable plan for self care, continue with treatment plan.
[2020-09-06 16:00] VITALS: BP 125/50
--- NOTE | 2020-09-06 16:09 | NUR ---
Initial Discharge Plan: Pt currently resides at her home located at [address] [place] [address], [place] [address]; ([phone]) with her , Richie ([phone]). Per pts , he would like the pt to be placed in a SNF. SW will work with the pt and the pts MD regarding appropriate discharge planning. SW will form a safe and proper discharge.
--- NOTE | 2020-09-06 16:12 | NUR ---
Firearms Report: Watershed Engineer completed and submitted a [employer] firearms report for 5150 grave disability certification. A copy of report has been placed in patient chart.
[2020-09-06] MEDS: LATANOPROST OPHT DROP 2.5 ML BOTTLE EACHEYE SCH (18:13)
[2020-09-06] MEDS: MIRTAZAPINE 15 MG TABLET PO SCH (20:19)
[2020-09-06 20:35] VITALS: BP 126/54
[2020-09-07 07:30] VITALS: BP 96/48
--- NOTE | 2020-09-07 07:30 | NUR ---
Received patient AOx1,patient calm, poor insight, poor memory, confused, walking in hallway needed heavy prompting and redirection, compliant with medication no sign of distress monitoring for safety and awol risk
[2020-09-07] MEDS: DIVALPROEX 250 MG TABLET.DR PO SCH ×2 (08:13→20:05)
[2020-09-07] MEDS: risperiDONE 0.5 MG TABLET PO SCH ×2 (08:13→20:05)
[2020-09-07] MEDS: PANTOPRAZOLE SODIUM 40 MG TABLET.DR PO SCH (08:13)
[2020-09-07] MEDS: AMLODIPINE 5 MG TABLET PO SCH (09:00)
[2020-09-07] MEDS: LORAZEPAM 0.5 MG TABLET PO PRN ×2 (10:13→15:26)
[2020-09-07 16:30] VITALS: BP 120/74
[2020-09-07] MEDS: LATANOPROST OPHT DROP 2.5 ML BOTTLE EACHEYE SCH (17:12)
--- NOTE | 2020-09-07 18:52 | NUR ---
PATIENT BEEN CALM , PACING IN HALLWAY, PATIENT POOR MEMORY , NEEDED HEAVY REDIRECTION MONITORED [id number] NO SIGN OF DISTRESS
[2020-09-07 20:00] VITALS: BP 122/69
[2020-09-07] MEDS: MIRTAZAPINE 15 MG TABLET PO SCH (20:05)
--- NOTE | 2020-09-07 20:57 | NUR ---
PATIENT NOTED A/O X 1. FORGETFUL, WONDERING THE UNIT, INTRUSIVE. REQUIRES CONSTANT REDIRECTION. THE PATIENT IS COMPLAINT WITH MEDICATION. PATIENT IS REASSURED FOR HER SAFETY AND FALL PRECAUTION IN PLACE. SAFE ENVIRONMENT PROVIDED, FREQUENT ROUNDING, AND CLUTTER FREE ENVIRONMENT.BED IN LOWEST POSITION AND BED LOCKED. NO AGGRESSIVE OR COMBATIVE BEHAVIOR.
[2020-09-07] MEDS: TEMAZEPAM 7.5 MG CAPSULE PO PRN (22:42)
[2020-09-08] MEDS: LORAZEPAM 0.5 MG TABLET PO PRN ×2 (00:21→21:48)
[2020-09-08 07:30] VITALS: BP 106/55
[2020-09-08] MEDS: PANTOPRAZOLE SODIUM 40 MG TABLET.DR PO SCH (08:19)
[2020-09-08] MEDS: risperiDONE 0.5 MG TABLET PO SCH ×2 (08:20→20:32)
[2020-09-08] MEDS: DIVALPROEX 250 MG TABLET.DR PO SCH ×2 (08:20→20:32)
[2020-09-08] MEDS: AMLODIPINE 5 MG TABLET PO SCH (09:00)
[2020-09-08 16:47] VITALS: BP 117/78
[2020-09-08] MEDS: LATANOPROST OPHT DROP 2.5 ML BOTTLE EACHEYE SCH (17:18)
--- NOTE | 2020-09-08 18:00 | NUR ---
received patient Aox1, disoriented to her situation , patient was asleep in her domenico chair in the morning, compliant with medications, needed heavy prompting and a lot of redirections, monitored q 15minutes , no sign of distress
[2020-09-08 20:00] VITALS: BP 132/69
[2020-09-08] MEDS: MIRTAZAPINE 15 MG TABLET PO SCH (20:32)
--- NOTE | 2020-09-08 21:51 | NUR ---
PATIENT IS VERY AGITATED. GETTING OUT OF THE BED AND KEEP GOING TO OTHER PATIENT'S ROOM. ATIVAN 0.5 MG PO GIVEN. CONTINUE MONITORING FOR SAFETY.
--- NOTE | 2020-09-08 22:51 | NUR ---
PATIENT IS CALM NOW. PRN EFFECTIVE FOR AGITATIONS.
[2020-09-09] MEDS: TEMAZEPAM 7.5 MG CAPSULE PO PRN (00:01)
[2020-09-09 07:30] VITALS: BP 117/52
[2020-09-09] MEDS: AMLODIPINE 5 MG TABLET PO SCH (08:19)
[2020-09-09] MEDS: risperiDONE 0.5 MG TABLET PO SCH ×2 (08:19→20:42)
[2020-09-09] MEDS: DIVALPROEX 250 MG TABLET.DR PO SCH ×2 (08:19→20:43)
[2020-09-09] MEDS: PANTOPRAZOLE SODIUM 40 MG TABLET.DR PO SCH (08:19)
--- NOTE | 2020-09-09 10:26 | NUR ---
SNF Referral: MILTON faxed a referral to [facility] SNF with attention Mimi to the fax number: [phone].
--- NOTE | 2020-09-09 10:45 | NUR ---
Probable Cause Hearing: Pts [id number] hold was upheld for grave disability. Certification was placed in the chart.
[2020-09-09] MEDS: LORAZEPAM 0.5 MG TABLET PO PRN ×2 (16:12→21:48)
--- NOTE | 2020-09-09 16:14 | NUR ---
SNF Contact: Mitzy ([phone]) admissions from [facility] contacted the SW and stated that the pt was accepted to their facility.
[2020-09-09 16:47] VITALS: BP 91/49
--- NOTE | 2020-09-09 17:04 | NUR ---
Clinical Social Work , Richie ) called at [phone] and wanted to discuss placement and current medications. Provided him with current medication regimen. He wants social workers to attempt placement at [facility] where she was in the past. he does not want any SNFs that are in [place] or far from his home in [place]. He would like care coordination with patient's outpatient psychiatrist, Dr Nielsen ([phone]). This information was passed on to social workers, Alva.
[2020-09-09] MEDS: LATANOPROST OPHT DROP 2.5 ML BOTTLE EACHEYE SCH (18:00)
[2020-09-09 20:19] VITALS: BP 112/55
[2020-09-09] MEDS: MIRTAZAPINE 15 MG TABLET PO SCH (20:42)
--- NOTE | 2020-09-09 22:43 | NUR ---
patient aaox1. Confused and disoriented. Patient redirected. No signs of agitation or other behavioral issues noted. Compliant with med. Patient wanders all over the place. Assisted back in gerichair, patient getting restless. Ativan 0.5 mg given. Will monitor patient. All needs attended. Kept comfortable. VSS.Voiding.
--- NOTE | 2020-09-10 06:59 | NUR ---
Quiet throughout the night. Had 5 1/2 sleep last night. No aggressive behavior noted. Kept comfortable. Will monitor patient.
[2020-09-10 07:30] VITALS: BP 101/50
[2020-09-10] MEDS: AMLODIPINE 5 MG TABLET PO SCH (09:00)
[2020-09-10] MEDS: PANTOPRAZOLE SODIUM 40 MG TABLET.DR PO SCH (09:03)
[2020-09-10] MEDS: DIVALPROEX 250 MG TABLET.DR PO SCH ×2 (09:03→20:06)
[2020-09-10] MEDS: risperiDONE 0.5 MG TABLET PO SCH ×2 (09:03→20:06)
[2020-09-10] MEDS: LORAZEPAM 0.5 MG TABLET PO PRN ×3 (09:11→20:07)
[2020-09-10] MEDS: ACETAMINOPHEN 325 MG TABLET PO PRN (14:43)
[2020-09-10 16:00] VITALS: BP 96/46
[2020-09-10] MEDS: LATANOPROST OPHT DROP 2.5 ML BOTTLE EACHEYE SCH (17:18)
--- NOTE | 2020-09-10 18:35 | NUR ---
patient alert to self, confused and disoriented, redirected. gave oral prn and patient started to calm down. complaint with medication. patient wanders all over the place, redirected and oriented. Assisted back in gerichair, patient getting restless given Ativan 0.5 mg given. patient calm down. complain of pain on the hip, given acetaminophen, tolerated well, no pain after. All needs attended. Kept comfortable. Voiding, assisted to bathroom. Will monitor patient.
[2020-09-10 19:30] VITALS: BP 145/70
[2020-09-10] MEDS: MIRTAZAPINE 15 MG TABLET PO SCH (20:06)
--- NOTE | 2020-09-10 23:02 | NUR ---
received patient in [facility] aaox1-2 Confused and disoriented. Patient redirected. Wanders around. All due meds given as ordered. Ativan 0.5 mg given as well. Will monitor patient q15 . Shower given. Assisted back in bed. Fall precautions maintained. Siderails up for safety. Bed alarm on.
--- NOTE | 2020-09-11 06:36 | NUR ---
quiet night. aaox1-2 confused and disoriented. Patient incontinent of urine x2. kept clean and dry. Slept well throughout the night. In no acute distress. No agitation or restlessness noted. Calm and cooperative. patient monitored q 15 minutes for safety.
[2020-09-11 08:24] VITALS: BP 116/62
[2020-09-11] MEDS: PANTOPRAZOLE SODIUM 40 MG TABLET.DR PO SCH (08:28)
[2020-09-11] MEDS: DIVALPROEX 250 MG TABLET.DR PO SCH (08:28)
[2020-09-11] MEDS: risperiDONE 0.5 MG TABLET PO SCH ×2 (08:30→20:55)
[2020-09-11] MEDS: AMLODIPINE 5 MG TABLET PO SCH (08:30)
[2020-09-11] MEDS: LORAZEPAM 0.5 MG TABLET PO PRN ×2 (12:28→17:20)
[2020-09-11] MEDS: LATANOPROST OPHT DROP 2.5 ML BOTTLE EACHEYE SCH (16:02)
[2020-09-11] MEDS: VALPROIC ACID 250 MG/5 ML LIQUID UDC PO SCH (16:02)
[2020-09-11 16:13] VITALS: BP 99/46
--- NOTE | 2020-09-11 17:00 | NUR ---
Gps/Merchandise Worker- Kept patient up in her recliner chair , monitoring closely for safety, tends to wander around, Confused, poor insight, monitored safety, needing constant redirections .Offered to be toileted at a regular intervals.
[2020-09-11 20:22] VITALS: BP 107/70
[2020-09-11] MEDS: MIRTAZAPINE 15 MG TABLET PO SCH (20:53)
[2020-09-11] MEDS: TEMAZEPAM 7.5 MG CAPSULE PO PRN (23:06)
--- NOTE | 2020-09-12 06:50 | NUR ---
GPS: REMAIN COOPERATIVE WITH MEDICATIONS. GETTING OUT OF THE BED AND KEEP GOING TO OTHER PATIENT'S ROOM. ASSISTED IN JESI CHAIR AND KEPT NEAR THE NURSING STATION FOR SAFETY. SLEPT 6 HRS THROUGH THE NIGHT. CONTINUE MONITORING FOR SAFETY.
[2020-09-12 07:41] LABS: BASOPHILS # (AUTO) 0.1 K/uL (0.0-8.0); BASOPHILS % (AUTO) 1.4 % (0.0-2.0); EOSINOPHILS # (AUTO) 0.2 K/uL (0.0-0.7); EOSINOPHILS % (AUTO) 2.9 % (0.0-7.0); HEMATOCRIT 37.1 % (31.2-41.9); HEMOGLOBIN 12.4 g/dL (10.9-14.3); LYMPHOCYTES # (AUTO) 2.3 K/uL (20.0-40.0); LYMPHOCYTES % (AUTO) 40.8 % (20.5-51.5); MEAN CORPUSCULAR HEMOGLOBIN 31.2 uug (24.7-32.8); MEAN CORPUSCULAR HGB CONC 34 g/dL (32.3-35.6); MEAN CORPUSCULAR VOLUME 93.2 fL (75.5-95.3); MONOCYTES # (AUTO) 0.6 K/uL (2.0-10.0); MONOCYTES % (AUTO) 10.2 % (0.0-11.0); NEUTROPHILS # (AUTO) 2.5 K/uL (1.8-8.9); NEUTROPHILS % (AUTO) 44.7 % (38.5-71.5); PLATELET COUNT (AUTO) 237 K/uL (179-408); RED BLOOD CELL COUNT(AUTO) 3.99 MIL/uL (3.63-4.92); WHITE BLOOD COUNT (AUTO) 5.6 K/uL (3.8-11.8)
[2020-09-12 08:04] VITALS: BP 96/46
[2020-09-12 08:16] LABS: BILIRUBIN,TOTAL 0.4 mg/dL (0.2-1.0); CREATININE 0.7 mg/dL (0.6-1.3); POTASSIUM 3.8 mmol/L (3.5-5.1); TOTAL PROTEIN, SERUM 7.3 g/dL (6.4-8.2)
[2020-09-12] MEDS: AMLODIPINE 5 MG TABLET PO SCH (09:00)
[2020-09-12] MEDS: PANTOPRAZOLE SODIUM 40 MG TABLET.DR PO SCH (09:08)
[2020-09-12] MEDS: DIVALPROEX 250 MG TABLET.DR PO SCH (09:09)
[2020-09-12] MEDS: risperiDONE 0.5 MG TABLET PO SCH ×2 (09:09→21:50)
--- NOTE | 2020-09-12 16:06 | NUR ---
SW Family Contact: This SW spoke with patient's Richie ([phone]) and discussed pt's discharge plan. This SW stated patient is accepted at [facility] SNF and Richie was agreeable.
[2020-09-12 16:23] VITALS: BP 117/75
[2020-09-12] MEDS: VALPROIC ACID 250 MG/5 ML LIQUID UDC PO SCH (16:57)
[2020-09-12] MEDS: LATANOPROST OPHT DROP 2.5 ML BOTTLE EACHEYE SCH (17:00)
[2020-09-12] MEDS: LORAZEPAM 0.5 MG TABLET PO PRN (20:10)
[2020-09-12 20:33] VITALS: BP 121/76
[2020-09-12] MEDS: TEMAZEPAM 7.5 MG CAPSULE PO PRN (21:36)
[2020-09-12] MEDS: MIRTAZAPINE 15 MG TABLET PO SCH (21:50)
--- NOTE | 2020-09-13 07:04 | NUR ---
Received Pt wandering the hallways, going into other Pt's rooms, being disruptive, and not following directions from staff for safety. Pt is A+Ox1 to her name only, she is disoriented, forgetful, and confused, requires constant reality reorientation and redirection. Pt placed in domenico chair for safety as her gait is unsteady and she is too cognitively impaired to follow safety instructions from staff. Pt is delusional and thinks she has to get home and babysit her small children, offers to pay money to get her out of the unit, and states she has to "put the babies to sleep and let the dog out." Ativan 0.5mg administered for increased anxiety with little effect, Pt maintained her same behavior and began hitting the table on the domenico chair and screaming. Restoril 7.5mg given for increased restlessness and agitation with minimal effect. Will continue to monitor for effect and attempt non pharmacological relaxation methods. VS stable, denies pain. Pt slept zero hours despite multiple sleep-promoting interventions.
[2020-09-13 07:30] VITALS: BP 106/70
[2020-09-13] MEDS: AMLODIPINE 5 MG TABLET PO SCH (09:00)
[2020-09-13] MEDS: risperiDONE 0.5 MG TABLET PO SCH ×2 (09:00→20:10)
[2020-09-13] MEDS: DIVALPROEX 250 MG TABLET.DR PO SCH (09:02)
[2020-09-13] MEDS: PANTOPRAZOLE SODIUM 40 MG TABLET.DR PO SCH (09:02)
[2020-09-13 15:39] VITALS: BP 115/70
[2020-09-13] MEDS: VALPROIC ACID 250 MG/5 ML LIQUID UDC PO SCH (17:50)
[2020-09-13] MEDS: LATANOPROST OPHT DROP 2.5 ML BOTTLE EACHEYE SCH (17:50)
[2020-09-13] MEDS: MIRTAZAPINE 15 MG TABLET PO SCH (20:10)
[2020-09-13 20:16] VITALS: BP 125/70
[2020-09-13] MEDS: LORAZEPAM 0.5 MG TABLET PO PRN (21:57)
[2020-09-13] MEDS: TEMAZEPAM 7.5 MG CAPSULE PO PRN (22:55)
[2020-09-14 07:30] VITALS: BP 99/49
--- NOTE | 2020-09-14 07:34 | NUR ---
received patient AOx1, confused ,patient asleep in her bed, on monitoring for safety, no sign of distress at this time
[2020-09-14] MEDS: DIVALPROEX 250 MG TABLET.DR PO SCH (08:37)
[2020-09-14] MEDS: PANTOPRAZOLE SODIUM 40 MG TABLET.DR PO SCH (08:37)
[2020-09-14] MEDS: risperiDONE 0.5 MG TABLET PO SCH ×2 (08:37→20:45)
[2020-09-14] MEDS: AMLODIPINE 5 MG TABLET PO SCH (09:00)
[2020-09-14 15:55] VITALS: BP 146/69
[2020-09-14] MEDS: VALPROIC ACID 250 MG/5 ML LIQUID UDC PO SCH (16:09)
--- NOTE | 2020-09-14 17:35 | NUR ---
patient been calm, compliant needed heavy prompting, patient looking for her mom, her sister, patient reoriented with reality, patient redirectable , no sign of any distress, denies SI and Hi, unable to contract self care, will continue monitor
[2020-09-14] MEDS: LATANOPROST OPHT DROP 2.5 ML BOTTLE EACHEYE SCH (18:00)
[2020-09-14] MEDS: MIRTAZAPINE 15 MG TABLET PO SCH (20:46)
[2020-09-14 21:19] VITALS: BP 113/59
[2020-09-14] MEDS: TEMAZEPAM 7.5 MG CAPSULE PO PRN (23:50)
--- NOTE | 2020-09-15 05:33 | NUR ---
Patient has been calm and cooperative, med compliant. Patient will remain in a psych facility for further evaluation and treatment.
[2020-09-15 07:30] VITALS: BP 109/62
[2020-09-15] MEDS: risperiDONE 0.5 MG TABLET PO SCH ×2 (08:29→21:38)
[2020-09-15] MEDS: PANTOPRAZOLE SODIUM 40 MG TABLET.DR PO SCH (08:30)
[2020-09-15] MEDS: DIVALPROEX 250 MG TABLET.DR PO SCH (08:30)
[2020-09-15] MEDS: AMLODIPINE 5 MG TABLET PO SCH (08:30)
[2020-09-15] MEDS: LORAZEPAM 0.5 MG TABLET PO PRN (10:53)
--- NOTE | 2020-09-15 13:02 | NUR ---
SW Family Contact: This SW spoke with patient's sister Constance ([phone]) and explained patients treatment plan and discharge plan. Constance was understanding of her treatment plan.
[2020-09-15 14:30] LABS: *BILIRUBIN,URIN NEGATIVE (NEGATIVE); *BLOOD, URINE NEGATIVE (NEGATIVE); *CLARITY,URINE CLEAR (CLEAR); *COLOR,URINE YELLOW (YELLOW); *KETONES,URINE NEGATIVE (NEGATIVE); *UROBILINOGEN,URINE 0.2 E.U./dl (NORMAL); LEUKOCYTE ESTERASE ,URINE NEGATIVE (NEGATIVE); NITRITE, URINE NEGATIVE (NEGATIVE); UGLUCOSE NEGATIVE (NEGATIVE)
--- NOTE | 2020-09-15 14:43 | NUR ---
Individual Counseling: touch up worker met with patient for brief counseling to help address patients presenting problem with disorganized thought content. Patient presented confused and disorganized. Patient unable to have a proper conversation due to her dementia. Patient appeared paranoid and delusional stating "I need to go to work, I am late to work". This SW was unable to conduct brief counseling at this time.
--- NOTE | 2020-09-15 15:11 | NUR ---
Pt. for UA for urine culture collected. awaiting result.
[2020-09-15] MEDS: VALPROIC ACID 250 MG/5 ML LIQUID UDC PO SCH (16:03)
[2020-09-15 17:04] VITALS: BP 139/48
[2020-09-15] MEDS: LATANOPROST OPHT DROP 2.5 ML BOTTLE EACHEYE SCH (18:00)
[2020-09-15 20:18] VITALS: BP 136/56
[2020-09-15] MEDS: MIRTAZAPINE 15 MG TABLET PO SCH (21:38)
--- NOTE | 2020-09-16 06:40 | NUR ---
GPS: Pt.slept 8 last night. Remains confused,disoriented. Environment kept hazard free at all times. Reality re-orientation provided. Will continue to monitor.
[2020-09-16 07:30] VITALS: BP 122/57
--- NOTE | 2020-09-16 07:30 | NUR ---
received patient AOx1, patient poor insight, poor memory, needed constant redirection, patient asleep in bed, on monitoring q94pihs no sign of distress
[2020-09-16] MEDS: risperiDONE 0.5 MG TABLET PO SCH ×2 (08:29→20:32)
[2020-09-16] MEDS: DIVALPROEX 250 MG TABLET.DR PO SCH (08:29)
[2020-09-16] MEDS: PANTOPRAZOLE SODIUM 40 MG TABLET.DR PO SCH (08:30)
[2020-09-16] MEDS: AMLODIPINE 5 MG TABLET PO SCH (09:00)
--- NOTE | 2020-09-16 12:53 | NUR ---
SW Family Contact: This SW left a voicemail to patient's Richie ([phone]) stating patient will be discharged Tuesday 09/19 to [facility].
--- NOTE | 2020-09-16 13:10 | NUR ---
MILTON Family Contact: MILTON spoke with patient's Richie ([phone]) who returned phone call and SW discussed discharge day. Richie was agreeable with this.
[2020-09-16 15:59] VITALS: BP 111/56
[2020-09-16] MEDS: ENSURE ENLIVE (VAN) 240 ML LIQUID PO SCH (17:00)
[2020-09-16] MEDS: VALPROIC ACID 250 MG/5 ML LIQUID UDC PO SCH (17:03)
[2020-09-16] MEDS: LATANOPROST OPHT DROP 2.5 ML BOTTLE EACHEYE SCH (17:06)
[2020-09-16 20:19] VITALS: BP 134/63
[2020-09-16] MEDS: MIRTAZAPINE 15 MG TABLET PO SCH (20:33)
--- NOTE | 2020-09-17 07:24 | NUR ---
PATIENT SLEPT FOR APPROX. 6.15 HRS THROUGH THE NIGHT. SHE CONTINUE FORGETFUL AND WONDERING IN THE UNIT. HOWEVER, SHE IS REDIRECTABLE, CALM AND PLEASANT UPON APPROACHED.
[2020-09-17 07:30] VITALS: BP 133/63
[2020-09-17] MEDS: PANTOPRAZOLE SODIUM 40 MG TABLET.DR PO SCH (08:31)
[2020-09-17] MEDS: DIVALPROEX 250 MG TABLET.DR PO SCH (08:31)
[2020-09-17] MEDS: risperiDONE 0.5 MG TABLET PO SCH ×2 (08:31→20:01)
[2020-09-17] MEDS: AMLODIPINE 5 MG TABLET PO SCH (08:31)
[2020-09-17] MEDS: ENSURE ENLIVE (VAN) 240 ML LIQUID PO SCH ×2 (08:32→17:18)
[2020-09-17 15:02] VITALS: BP 102/61
[2020-09-17] MEDS: VALPROIC ACID 250 MG/5 ML LIQUID UDC PO SCH (16:04)
[2020-09-17] MEDS: LATANOPROST OPHT DROP 2.5 ML BOTTLE EACHEYE SCH (17:13)
[2020-09-17] MEDS: LORAZEPAM 0.5 MG TABLET PO PRN (19:36)
[2020-09-17] MEDS: MIRTAZAPINE 15 MG TABLET PO SCH (20:01)
[2020-09-17 20:15] VITALS: BP 146/67
[2020-09-17] MEDS: ACETAMINOPHEN 325 MG TABLET PO PRN (20:27)
[2020-09-17] MEDS: TEMAZEPAM 7.5 MG CAPSULE PO PRN (21:02)
--- NOTE | 2020-09-18 07:02 | NUR ---
Pt is A+Ox1 to her name only, she is disoriented, forgetful, and confused, requires constant reality reorientation and redirection. Pt placed in domenico chair for safety as her gait is unsteady and she is cognitively impaired, and unable to follow safety instructions from staff. Pt is delusional and unable to engage in meaningful conversation. Ativan 0.5mg administered for increased anxiety with little effect, Pt maintained her same behavior and began hitting the table on the domenico chair and screaming. Restoril 7.5mg given for increased restlessness and agitation with minimal effect. Will continue to monitor for effect and attempt non pharmacological relaxation methods. VS stable, c/o 02/18 (B) hip pain, Tylenol 650mg administered with good effect.
[2020-09-18 07:30] VITALS: BP 98/48
[2020-09-18] MEDS: ENSURE ENLIVE (VAN) 240 ML LIQUID PO SCH ×2 (08:00→17:00)
[2020-09-18] MEDS: DIVALPROEX 250 MG TABLET.DR PO SCH (08:27)
[2020-09-18] MEDS: AMLODIPINE 5 MG TABLET PO SCH (08:27)
[2020-09-18] MEDS: PANTOPRAZOLE SODIUM 40 MG TABLET.DR PO SCH (08:27)
[2020-09-18] MEDS: risperiDONE 0.5 MG TABLET PO SCH ×2 (08:28→20:00)
[2020-09-18 15:33] VITALS: BP 138/78
[2020-09-18] MEDS: VALPROIC ACID 250 MG/5 ML LIQUID UDC PO SCH (16:00)
[2020-09-18] MEDS: LATANOPROST OPHT DROP 2.5 ML BOTTLE EACHEYE SCH (17:01)
[2020-09-18] MEDS: LORAZEPAM 0.5 MG TABLET PO PRN (19:48)
[2020-09-18] MEDS: MIRTAZAPINE 15 MG TABLET PO SCH (20:00)
[2020-09-18 20:06] VITALS: BP 109/52
[2020-09-18] MEDS ORDERED: diphenhydrAMINE 50 MG/1 ML VIAL IM ONE (21:55)
[2020-09-18] MEDS ORDERED: OLANZAPINE 10 MG VIAL IM ONE (21:55)
[2020-09-18] MEDS: TEMAZEPAM 7.5 MG CAPSULE PO PRN (22:45)
--- NOTE | 2020-09-19 05:19 | NUR ---
Scanned prn Restoril 7.5mg at 2245 but did erroneously not save it on the computer. Carlos Isbell, RN witness to Pt taking medication.
[2020-09-19 07:30] VITALS: BP 133/70
--- NOTE | 2020-09-19 08:06 | NUR ---
Discharge Note: Patient will be discharged to a locked halfway facility to [place] [id number]; ([phone]) via ambulance transportation at 1PM. Hand Hose Cutter spoke with Mitzy, Airfield Services Officer at [facility]; ([phone]), who stated patient will be accepted at facility today. Patients Chanel ([phone]) is involved in patients care and is aware of discharge. Patient is alert and oriented x1, and is not able to plan for self-care at this time, but is willing to accept care provided for her at the facility. Patient denies any suicidal or homicidal ideation. Patient will continue to follow-up with her (Psychiatrist) Dr. Brewer and (Loader Demolder) Dr. Valverde at [address] [address]; ([phone]). Patient will follow-up at the center. Patient presents with euthymic mood and congruent affect.
[2020-09-19] MEDS: ENSURE ENLIVE (VAN) 240 ML LIQUID PO SCH (08:30)
[2020-09-19 08:31] VITALS: BP 133/70
[2020-09-19] MEDS: AMLODIPINE 5 MG TABLET PO SCH (08:31)
[2020-09-19] MEDS: DIVALPROEX 250 MG TABLET.DR PO SCH (08:31)
[2020-09-19] MEDS: PANTOPRAZOLE SODIUM 40 MG TABLET.DR PO SCH (08:32)
[2020-09-19] MEDS: risperiDONE 0.5 MG TABLET PO SCH (08:32)
--- NOTE | 2020-09-19 15:45 | NUR ---
DISCHARGE NOTE: Patient discharged off the unit in stable condition without adverse reaction accompanied by RN. Patient is being transported to [facility] ([phone]) via nonemergency ambulance. Patient's belongings and valuables inventoried and returned. Patient provided with education about discharge medications, follow up with psychiatrist, and discharge instructions. Patient is confused, alert to name only. Upon discharge, patient denies suicidal and homicidal ideation.
== END 2020-09-19 15:30 | DRG 885 ==
LOC: ER 14:20 → GPS 17:36
PROVIDERS: ADMIT Psychiatry & Neurology Psychiatry; ATTEND Internal Medicine
DX: F29 Unspecified psychosis not due to a substance or known physiological condition (principal); E44.0 Moderate protein-calorie malnutrition; F03.91 Unspecified dementia, unspecified severity, with behavioral disturbance; E88.09 Other disorders of plasma-protein metabolism, not elsewhere classified; E78.5 Hyperlipidemia, unspecified; F32.9 Major depressive disorder, single episode, unspecified; F41.9 Anxiety disorder, unspecified; K21.9 Gastro-esophageal reflux disease without esophagitis; Z20.822 Contact with and (suspected) exposure to COVID-19; I10 Essential (primary) hypertension; M19.90 Unspecified osteoarthritis, unspecified site; H40.9 Unspecified glaucoma; Z68.22 Body mass index [BMI] 22.0-22.9, adult; Z73.6 Limitation of activities due to disability
CPT/HCPCS: 36415; 80164; 85025; A4663; G0480; J3490